=== PATIENT | female | born 1955 | race African-American/Black ===

== ENCOUNTER → 2016-07-02 | Outpatient (CLI) | payer MEDICARE, BC | LOC: RAD 09:00 | PROVIDERS: ATTEND Surgery | DX: R13.10 Dysphagia, unspecified (principal) | CPT/HCPCS: 74210 ==

== ENCOUNTER → 2016-08-20 | Outpatient (CLI) | payer MEDICARE, BC | LOC: WI 09:15 | PROVIDERS: ATTEND Internal Medicine | DX: N63 Unspecified lump in breast (principal); N64.9 Disorder of breast, unspecified | CPT/HCPCS: 76642; G0204; 77066 ==

== ENCOUNTER → 2016-09-18 | Day surgery (SDC) | payer MEDICARE, BC ==
[~2016-09-18] MED LIST: LIDOCAINE 2% INJ (20 MG/ML) 20 ML MDV ONE
== END ==
LOC: WI 09:58
PROVIDERS: ATTEND Internal Medicine
PROC: 0HBU3ZX Excision of Left Breast, Percutaneous Approach, Diagnostic (ICD-10-PCS; principal; 2016-09-18)
DX: C50.912 Malignant neoplasm of unspecified site of left female breast (principal)
CPT/HCPCS: 88342 ×2; 88341 ×2; 88305 ×2; 19083; J3490

== ENCOUNTER → 2016-09-23 | Outpatient (CLI) | payer MEDICARE, BC | LOC: RAD 11:05 | PROVIDERS: ATTEND Internal Medicine | DX: N23 Unspecified renal colic (principal) | CPT/HCPCS: 76380 ==

== ENCOUNTER → 2016-09-29 | Outpatient (CLI) | payer MEDICARE, BC | LOC: RAD 08:57 | PROVIDERS: ATTEND Internal Medicine Medical Oncology | DX: N64.4 Mastodynia (principal) | CPT/HCPCS: A9576; C8906; 77059 ==

== ENCOUNTER → 2016-10-31 | Outpatient (CLI) | payer MEDICARE, BC | LOC: RAD 17:58 | PROVIDERS: ATTEND Internal Medicine Medical Oncology | DX: C50.412 Malignant neoplasm of upper-outer quadrant of left female breast (principal); N64.4 Mastodynia | CPT/HCPCS: 78815; A9552 ==

== ENCOUNTER → 2016-11-05 | Outpatient (CLI) | payer MEDICARE, BC | LOC: RAD 10:55 | PROVIDERS: ATTEND Internal Medicine Medical Oncology | DX: I42.7 Cardiomyopathy due to drug and external agent (principal); T45.1X5A Adverse effect of antineoplastic and immunosuppressive drugs, initial encounter; Y92.9 Unspecified place or not applicable | CPT/HCPCS: 78472; A9560; Q9969 ==

== ENCOUNTER 2016-11-27 21:50 | Emergency (ER) | payer MEDICARE, BC ==
--- NOTE | 2016-11-27 23:19 | RADIOLOGY REPORT (SQ) ---
EXAM DESCRIPTION: CHEST SINGLE VIEW COMPLETED DATE/TIME: 11/27/2016 11:10 pm REASON FOR STUDY: sob' COMPARISON: 03/12/2013. EXAM PARAMETERS: NUMBER OF VIEWS: One view. TECHNIQUE: Single frontal radiographic view of the chest acquired. RADIATION DOSE: NA LIMITATIONS: None. FINDINGS: LUNGS AND PLEURA: No opacities, masses or pneumothorax. No pleural effusion. MEDIASTINUM AND HILAR STRUCTURES: No masses. Contour normal. HEART AND VASCULAR STRUCTURES: Heart normal in size. Normal vasculature. BONES: No acute findings. Degenerative changes in the spine. HARDWARE: PICC line. OTHER: No other significant finding. IMPRESSION: NO ACUTE RADIOGRAPHIC FINDING IN THE CHEST. TECHNICAL DOCUMENTATION: JOB ID: [id number]
[2016-11-27] MEDS ORDERED: NORMAL SALINE 1000 ML 1,000 ML IV ONE (23:28)
--- NOTE | 2016-11-27 23:31 | ER Document Report ---
ED General - General Chief Complaint: Shortness Of Breath Stated Complaint: WEAKNESS Time Seen by Provider: 11/27/16 22:26 Notes: Patient is a 60 year old female with a past medical history of stage I breast cancer of the left breast on active chemotherapy and radiation at this time who presents with chest pain with a associated shortness of breath both of which have now resolved. Patient states that she had a fall yesterday in which she fell and hit her left chest. States that since that time she has had some dull , aching, constant pain to the affected left chest. States that today when she was in the kitchen she suddenly had progressive worsening of that pain. Describes it as a dull, aching, stabbing pain. Nothing was noted to trigger the pain has not completely resolved on its own. She does have a history of a pulmonary embolus in the past and is currently anticoagulated on rivaroxaban. Denies any missed medications. States that the pain does not feel at all similar to when she had a pulmonary embolus in the past. Denies any cardiac history. She has not seen her primary care doctor regarding today's concerns. TRAVEL OUTSIDE OF THE [place] IN LAST 30 DAYS: No - Related Data Allergies/Adverse Reactions: iodine [Iodine] Allergy (Severe, Verified 11/28/15 07:08) swelling, itch, resp distress Past Medical History - General Information source: Patient - Social History Smoking Status: Never Smoker Frequency of alcohol use: None Drug Abuse: None Lives with: Family Family History: Arthritis, CAD, DM, Hyperlipidemia, Hypertension, Malignancy Patient has suicidal ideation: No Patient has homicidal ideation: No - Past Medical History Cardiac Medical History: Reports: Hx Congestive Heart Failure - 2006, Hx Coronary Artery Disease, Hx DVT, Hx Hypercholesterolemia, Hx Hypertension, Hx Peripheral Vascular Disease, Hx Pulmonary Embolism - 1996 or 997 Denies: Hx Atrial Fibrillation, Hx Heart Attack, Hx Heart Murmur Pulmonary Medical History: Reports: Hx Asthma Denies: Hx Bronchitis, Hx COPD, Hx Pneumonia, Hx Respiratory Failure, Hx Sleep Apnea, Hx Tuberculosis Neurological Medical History: Denies: Hx Cerebrovascular Accident, Hx Seizures Endocrine Medical History: Reports: Hx Diabetes Mellitus Type 1, Hx Diabetes Mellitus Type 2, Hx Hypothyroidism. Denies: Hx Graves' Disease, Hx Hyperthyroidism Renal/ Medical History: Reports: Hx Kidney Stones - 2 wks ago, Hx Renal Insufficiency. Denies: Hx Peritoneal Dialysis Malignancy Medical History: Denies: Hx Lung Cancer GI Medical History: Reports: Hx Gastroesophageal Reflux Disease Musculoskeltal Medical History: Reports Hx Arthritis - Back, Reports Hx Musculoskeletal Trauma Psychiatric Medical History: Denies: Hx Depression Traumatic Medical History: Reports: Hx Fractures - hx L ankle Past Surgical History: Reports: Hx Abdominal Surgery - lap band, Hx Cholecystectomy, Hx Orthopedic Surgery - back surgery, Hx Thyroid Surgery, Hx Vascular Surgery - miranda filter. Denies: Hx Hysterectomy, Hx Pacemaker - Immunizations Immunizations up to date: Yes Hx Diphtheria, Pertussis, Tetanus Vaccination: Yes Hx Pneumococcal Vaccination: 06/22/00 Review of Systems - Review of Systems Notes: Constitutional: Negative for fever. HENT: Negative for sore throat. Eyes: Negative for visual changes. Cardiovascular: Positive for chest pain. Respiratory: Negative for shortness of breath. Gastrointestinal: Negative for abdominal pain, vomiting or diarrhea. Genitourinary: Negative for dysuria. Musculoskeletal: Negative for back pain. Skin: Negative for rash. Neurological: Negative for headaches, weakness or numbness. 10 point ROS negative except as marked above and in HPI. Physical Exam - Vital signs Vitals: Temp Pulse Resp BP 97.4 F 103 H 26 H 118/53 L 11/27/16 22:25 11/27/16 22:25 11/27/16 22:25 11/27/16 22:25 Initial respiratory rate is recorded is inaccurate. I saw the patient shortly after arrival and she had a normal respiratory rate of 14 breaths per minute. Interpretation: Tachycardic Notes: PHYSICAL EXAMINATION: GENERAL: Well-appearing, well-nourished and in no acute distress. HEAD: Atraumatic, normocephalic. EYES: Pupils equal round and reactive to light, extraocular movements intact, sclera anicteric, conjunctiva are normal. ENT: nares patent, oropharynx clear without exudates. Moist mucous membranes. NECK: Normal range of motion, supple without lymphadenopathy LUNGS: Breath sounds clear to auscultation bilaterally and equal. No wheezes rales or rhonchi. HEART: Regular rate and rhythm without murmurs ABDOMEN: Soft, nontender, normoactive bowel sounds. No guarding, no rebound. No masses appreciated. EXTREMITIES: Normal range of motion, no pitting or edema. No cyanosis. NEUROLOGICAL: No focal neurological deficits. Moves all extremities spontaneously and on command. PSYCH: Normal mood, normal affect. SKIN: Warm, Dry, normal turgor, no rashes or lesions noted. Course - Re-evaluation Re-evalutation: 11/27/16 23:28 Patient presents with complaints of chest pain that has now resolved spontaneously with some associated mild shortness of breath. She clarifies that her shortness of breath is actually more of generalized weakness and fatigue which she states she has had continuously since starting chemotherapy for localized breast cancer to the left breast. Patient does have a history of a pulmonary embolism in the past and is currently anticoagulated on rivaroxaban and is clear that she has been taking it exactly as directed and has not missed any doses. She also states "it cannot be that, it feels nothing like when I had that in the past". She denies any dyspnea at the time of my assessment and again states her chest pain is now gone. No cardiac history. She relays a large degree of soreness over her left chest and lower ribs after an episode in which she fell yesterday. Patient does have reproducible pain on palpation of the affected areas. Chest x-ray without evidence of pneumothorax, free air, or widened mediastinum. EKG without ST elevations or depressions. Of note, patient's initial laboratories do show a leukocytosis with an associated bandemia. Suspect this is related to her recent chemotherapy as she has no infectious symptoms whatsoever, no evidence of a urinary tract infection or pneumonia. She has no skin exam findings. Again she denies any symptoms to suggest an acute infectious pathology today. HEART Score: History:0 EC Age:1 Risk Factors:1 Troponin:0 Total: 2 11/28/16 02:48 Patient has remained without pain or shortness of breath. Second troponin remains negative. Final overall assessment: Chest pain in a patient without evidence of cardiac or other serious etiology on workup today. I discussed with patient that, based on their age, risk factors and emergency department testing today, the likelihood that their symptoms are related to a heart attack is very low (estimated risk of heart attack or over the next 30 days of less than 1%). The patient demonstrates decision making capacity and has verbalized an understanding of these risks to me. Based on this, the patient has chosen to follow-up as an outpatient. Usual chest pain return precautions reviewed. The patient states understanding and agreement with this plan. 11/28/16 02:51 - Vital Signs Vital signs: Temp Pulse Resp BP Pulse Ox 97.7 F 97 17 113/58 L 100 11/27/16 23:14 11/27/16 23:14 11/28/16 01:00 11/28/16 00:01 11/28/16 01:00 - Laboratory Result Diagrams: 11/27/16 23:20 11/27/16 23:20 Laboratory results interpreted by me: 11/27/16 11/27/16 11/28/16 00:40 23:20 01:51 WBC 18.5 H MCH 26.9 L RDW 16.7 H Band Neutrophils % 8 H Monocytes % (Manual) 0 L Metamyelocytes % 1 H Abs Neuts (Manual) 15.2 H Abs Monocytes (Manual) 0.0 L Sodium 136.9 L Potassium 3.3 L Carbon Dioxide 19 L Glucose 118 H Total Protein 5.7 L Albumin 3.1 L Urine Glucose (UA) >=1000 H Urine Ketones 100 H - Diagnostic Test Radiology reviewed: Image reviewed, Reports reviewed Radiology results interpreted by me: 11/28/16 02:49 Chest x-ray: No acute infiltrate or pneumothorax - EKG Interpretation by Me Additional EKG results interpreted by me: 11/28/16 02:49 Sinus tachycardia. Rate 107. No ST elevations or depressions. TC is 465. Discharge - Discharge Clinical Impression: Chest pain Qualifiers: Chest pain type: unspecified Qualified Code(s): R07.9 - Chest pain, unspecified Condition: Good Disposition: HOME, SELF-CARE Additional Instructions: You were seen today for chest pain. The exact cause of your pain is unclear. However, based on your cardiac enzyme testing, chest x-ray, and EKG it does not appear that it is from an immediately life-threatening cause at this time. Although your testing here is normal is critical that you follow-up with your primary care physician for continued evaluation of this chest pain and possible stress testing. I recommended you see your physician within the next 24-48 hours to be evaluated for consideration of a stress test. Please return to emergency department immediately if you have worsening of your chest pain, shortness of breath, vomiting, become unable to exert yourself due to pain or difficulty breathing, you pass out, or have any pain that radiates into your arms, jaw, or back. Please also return if you have any additional symptoms that are concerning to you. Referrals: DEBRA CAMPBELL MD [Primary Care Provider] - Follow up in 3-5 days
[2016-11-27 23:41] LABS: HEMOGLOBIN 13.1 g/dL (12.0-15.5); HGB HCT DIFFERENCE -1.7; MEAN CORPUSCULAR HEMOGLOBIN 26.9 pg (27.0-33.4); MEAN CORPUSCULAR VOLUME 84 fl (80-97); RED BLOOD COUNT 4.88 10^6/uL (3.72-5.28); RED CELL DISTRIBUTION WIDTH 16.7 % (11.5-14.0); WHITE BLOOD COUNT 18.5 10^3/uL (4.0-10.5)
[2016-11-27] MEDS ORDERED: IPRATROPIUM/ALBUTEROL 0.5-2.5 MG/3 ML AMPUL NEB ONE (23:43)
[2016-11-28 00:12] LABS: BAND NEUTROPHILS % (MANUAL) 8 % (3-5); BASOPHILS % (MANUAL) 0 % (0-2); EOSINOPHILS % (MANUAL) 0 % (0-6); LYMPHOCYTES % (MANUAL) 18 % (13-45); TOTAL CELLS COUNTED 100
[2016-11-28 00:14] LABS: ANISOCYTOSIS 1+; POLYCHROMASIA 1+; TOXIC GRANULATION 1+; TOXIC VACUOLATION PRESENT
[2016-11-28 01:47] LABS: ALANINE AMINOTRANSFERASE 36 U/L (9-52); ALBUMIN 3.1 g/dL (3.5-5.0); ALKALINE PHOSPHATASE 94 U/L (38-126); ANION GAP 11 (5-19); ASPARTATE AMINO TRANSFERASE 17 U/L (14-36); BILIRUBIN,DIRECT 0.3 mg/dL (0.0-0.4); BILIRUBIN,TOTAL 0.3 mg/dL (0.2-1.3); BLOOD UREA NITROGEN 10 mg/dL (7-20); CALCIUM 8.7 mg/dL (8.4-10.2); CARBON DIOXIDE 19 mmol/L (22-30); CHLORIDE 107 mmol/L (98-107); CREATININE RESULT 0.83 mg/dL (0.52-1.25); GLUCOSE 118 mg/dL (75-110); POTASSIUM 3.3 mmol/L (3.6-5.0); SODIUM 136.9 mmol/L (137-145); TOTAL PROTEIN 5.7 g/dL (6.3-8.2)
[2016-11-28 02:23] LABS: APPEARANCE,URINE SLIGHTLY-CLOUDY; BILIRUBIN,URINE NEGATIVE (NEGATIVE); GLUCOSE, URINE >=1000 mg/dL (NEGATIVE); KETONES,URINE 100 mg/dL (NEGATIVE)
[2016-11-28 02:24] LABS: LEUKOCYTE ESTERASE,URINE NEGATIVE (NEGATIVE); NITRITE,URINE NEGATIVE (NEGATIVE); PROTEIN,URINE NEGATIVE (NEGATIVE); URINE SPECIFIC GRAVITY 1.028; UROBILINOGEN,URINE NEGATIVE mg/dL (<2.0)
[2016-11-28 02:25] LABS: BACTERIA,URINE TRACE /HPF
[2016-11-28 03:10] VITALS: BP 130/66
--- NOTE | 2016-11-28 11:03 | EKG REPORT ---
SEVERITY:- ABNORMAL ECG - SINUS TACHYCARDIA PROBABLE LEFT ATRIAL ABNORMALITY LVH WITH SECONDARY REPOLARIZATION ABNORMALITY : Confirmed by: Gunjan Hopper MD 28-Nov-2016 11:02:35
== END 2016-11-28 03:10 | disposition home or self-care (01) ==
LOC: ER 21:50
DX: R07.9 Chest pain, unspecified (principal); R06.02 Shortness of breath; C50.912 Malignant neoplasm of unspecified site of left female breast; W19.XXXA Unspecified fall, initial encounter; R53.83 Other fatigue; R53.1 Weakness; I50.9 Heart failure, unspecified; E78.00 Pure hypercholesterolemia, unspecified; I11.0 Hypertensive heart disease with heart failure; E11.9 Type 2 diabetes mellitus without complications; E03.9 Hypothyroidism, unspecified; Z79.02 Long term (current) use of antithrombotics/antiplatelets; Z86.711 Personal history of pulmonary embolism; Z86.718 Personal history of other venous thrombosis and embolism; Z87.442 Personal history of urinary calculi; Z90.49 Acquired absence of other specified parts of digestive tract
CPT/HCPCS: 93005; 94640; 99285; 96360; 36415; 85025; 80053; 81001; 84484; 71010; 93010; J7030; A9270; J7620

== ENCOUNTER 2016-12-16 13:40 | Observation (INO) | payer MEDICARE, BC ==
[2016-12-16 15:04] LABS: HEMATOCRIT 40.2 % (36.0-47.0); HEMOGLOBIN 13.3 g/dL (12.0-15.5); HGB HCT DIFFERENCE -0.3; MEAN CORPUSCULAR HEMOGLOBIN 27.7 pg (27.0-33.4); MEAN CORPUSCULAR HGB CONC 33.2 g/dL (32.0-36.0); MEAN CORPUSCULAR VOLUME 83 fl (80-97); RED BLOOD COUNT 4.82 10^6/uL (3.72-5.28); WHITE BLOOD COUNT 10.5 10^3/uL (4.0-10.5)
[2016-12-16 15:26] LABS: ALANINE AMINOTRANSFERASE 37 U/L (9-52); ALBUMIN 3.5 g/dL (3.5-5.0); ALKALINE PHOSPHATASE 98 U/L (38-126); ANION GAP 13 (5-19); ASPARTATE AMINO TRANSFERASE 17 U/L (14-36); BILIRUBIN,DIRECT 0.2 mg/dL (0.0-0.4); BILIRUBIN,TOTAL 0.5 mg/dL (0.2-1.3); BLOOD UREA NITROGEN 11 mg/dL (7-20); CALCIUM 9.2 mg/dL (8.4-10.2); CARBON DIOXIDE 24 mmol/L (22-30); CHLORIDE 97 mmol/L (98-107); CREATININE RESULT 0.87 mg/dL (0.52-1.25); GLUCOSE 151 mg/dL (75-110); POTASSIUM 3.7 mmol/L (3.6-5.0); SODIUM 133.7 mmol/L (137-145); TOTAL PROTEIN 6.4 g/dL (6.3-8.2)
[2016-12-16] MEDS ORDERED: NORMAL SALINE 1000 ML 1,000 ML IV PRN (15:41)
[2016-12-16] MEDS ORDERED: PROCHLORPERAZINE MALEATE 10 MG TABLET PO PRN (17:54)
[2016-12-16] MEDS ORDERED: (PENDING PHARMACY ID) (Oxycodone Hcl/Acetaminophen [Percocet 10-325 Mg Tablet] 1 TAB) PO PRN (17:54)
[2016-12-16] MEDS ORDERED: ALBUTEROL SULFATE HFA (90 MCG/PUFF) 8 GM MDI (1 MDI/ER DISP) IH PRN (17:54)
[2016-12-16] MEDS ORDERED: (PENDING PHARMACY ID) (Valsartan/Hydrochlorothiazide [Diovan Hct 320-25 Mg Tablet] 1 TAB) PO SCH (18:00)
--- NOTE | 2016-12-16 18:10 | PDOC H&P ---
History of Present Illness Admission Date/PCP: 12/16/16 13:40 DEBRA CAMPBELL MD History of Present Illness: BELEM WILLOUGHBY is a 61 year old female she has a history of breast cancer on active chemotherapy, she came to the office today for evaluation of extreme fatigue and low blood pressure, she stated that she was at the oncologist's office earlier today and the blood pressure recorded was 80 systolic. she was Evaluated in the office the blood pressure recorded in the office was 160 systolic because of the discrepancy between the recorded blood pressure in the office and the blood pressure recorded at the office of the oncologist, orthostasis was suspected, she was admitted directly from the office for evaluation and management of her condition. Past Medical History Cardiac Medical History: Reports: Atrial Fibrillation, Hyperlipidema, Hypertension Pulmonary Medical History: Reports: Asthma Neurological Medical History: Denies: Seizures Endocrine Medical History: Reports: Diabetes Mellitus Type 2, Hypothyroidism, Obesity Malignancy Medical History: Reports: Breast Cancer GI Medical History: Reports: Gastroesophageal Reflux Disease Musculoskeltal Medical History: Reports: Arthritis - Back Past Surgical History Past Surgical History: Reports: Cholecystectomy, Orthopedic Surgery - back surgery, Vascular Surgery - miranda filter Social History Smoking Status: Never Smoker Frequency of Alcohol Use: None Hx Recreational Drug Use: No Hx Prescription Drug Abuse: No Family History Family History: Arthritis, CAD, DM, Hyperlipidemia, Hypertension, Malignancy Parental Family History Reviewed: Yes Children Family History Reviewed: Yes Sibling(s) Family History Reviewed.: Yes Medication/Allergy Home Medications: Albuterol Sulfate [Proair HFA] 2 puff IH Q4HP PRN 12/16/16 Atorvastatin Calcium [Lipitor 40 mg Tablet] 40 mg PO QHS 12/16/16 Budesonide/Formoterol Fumarate [Symbicort HFA 160-4.5 mcg Inhaler 6 gm] 2 puff IH Q12 12/16/16 Cyclobenzaprine HCl [Flexeril 10 mg Tablet] 10 mg PO Q8 12/16/16 Exenatide Microspheres [Bydureon Pen] 12/16/16 Glimepiride [Amaryl 4 mg Tablet] 4 mg PO DAILY 12/16/16 Levothyroxine Sodium [Synthroid 0.1 mg Tablet] 100 mcg PO DAILY 12/16/16 Lorazepam [Ativan 0.5 mg Tablet] 12/16/16 Metformin HCl [Glucophage] 12/16/16 Nystatin/Dexameth/Diphen [Magic Mouthwash] 12/16/16 Ondansetron HCl [Zofran 8 mg Tablet] 12/16/16 Oxycodone HCl/Acetaminophen [Percocet 10-325 mg Tablet] 1 tab PO Q6HP PRN Pegfilgrastim [Neulasta] 12/16/16 Prednisolone Acetate [Pred Forte] 1 drop OU Q12 12/16/16 Prochlorperazine Maleate [Compazine 10 mg Tablet] 10 mg PO Q6HP PRN 12/16/16 Rivaroxaban [Xarelto] 20 mg PO DAILY 12/16/16 Valsartan/Hydrochlorothiazide [Diovan Hct 320-25 mg Tablet] 1 tab PO DAILY 12/16 Allergies/Adverse Reactions: iodine [Iodine] Allergy (Severe, Verified 11/28/15 07:08) swelling, itch, resp distress Review of Systems Constitutional: PRESENT: fatigue Eyes: ABSENT: visual disturbances Ears: ABSENT: hearing changes Cardiovascular: ABSENT: chest pain, dyspnea on exertion, edema, orthropnea, palpitations Respiratory: ABSENT: cough, hemoptysis Gastrointestinal: ABSENT: abdominal pain, constipation, diarrhea, hematemesis, hematochezia, nausea, vomiting Genitourinary: ABSENT: dysuria, hematuria Musculoskeletal: ABSENT: joint swelling Integumentary: ABSENT: rash, wounds Neurological: ABSENT: abnormal gait, abnormal speech, confusion, dizziness, focal weakness, syncope Psychiatric: ABSENT: anxiety, depression, homidical ideation, suicidal ideation Endocrine: ABSENT: cold intolerance, heat intolerance, menstrual abnormalities, polydipsia, polyuria Hematologic/Lymphatic: ABSENT: easy bleeding, easy bruising, lymphadenopathy Physical Exam Vital Signs: Temp Pulse Resp BP Pulse Ox 98.0 F 109 H 20 145/74 H 100 12/16/16 14:19 12/16/16 15:50 12/16/16 14:19 12/16/16 14:19 12/16/16 14:19 Intake & Output 12/15/16 12/16/16 12/17/16 06:59 06:59 06:59 Weight 135.5 kg General appearance: PRESENT: mild distress Head exam: PRESENT: atraumatic, normocephalic Eye exam: PRESENT: conjunctiva pink, EOMI, PERRLA Mouth exam: PRESENT: moist Neck exam: PRESENT: full ROM Respiratory exam: PRESENT: clear to auscultation maria del rosario Cardiovascular exam: PRESENT: RRR, +S1, +S2 Vascular exam: PRESENT: normal capillary refill GI/Abdominal exam: PRESENT: normal bowel sounds, soft Rectal exam: PRESENT: deferred Neurological exam: PRESENT: alert, awake, oriented to person, oriented to place , oriented to time, oriented to situation, CN II-XII grossly intact Psychiatric exam: PRESENT: appropriate affect, normal mood Skin exam: PRESENT: dry, intact, warm Results Laboratory Results: 12/16/16 14:55 12/16/16 14:55 12/16/16 12/16/16 14:55 14:55 WBC 10.5 RBC 4.82 Hgb 13.3 Hct 40.2 MCV 83 MCH 27.7 MCHC 33.2 RDW 18.0 H Plt Count 313 Sodium 133.7 L Potassium 3.7 Chloride 97 L Carbon Dioxide 24 Anion Gap 13 BUN 11 Creatinine 0.87 Est GFR ( Amer) > 60 Est GFR (Non-Af Amer) > 60 Glucose 151 H Calcium 9.2 Total Bilirubin 0.5 AST 17 ALT 37 Alkaline Phosphatase 98 Total Protein 6.4 Albumin 3.5 Assessment & Plan - Diagnosis (1) Malignant neoplasm of breast Qualifiers: Breast location: unspecified site of breast Estrogen receptor status: unspecified Patient sex: female Laterality: unspecified laterality Qualified Code(s): C50.919 - Malignant neoplasm of unspecified site of unspecified female breast Is this a current diagnosis for this admission?: Yes (2) Orthostasis Is this a current diagnosis for this admission?: YesPlan: Condition is probably related to the chemotherapy that she received, she was admitted for observation and for IV fluid therapy she will be discharged home in 24 hours
[2016-12-16] MEDS ORDERED: LORAZEPAM 0.5 MG TABLET PO PRN (18:15)
[2016-12-16] MEDS ORDERED: ONDANSETRON HCL 8 MG TABLET PO PRN (18:15)
[2016-12-16] MEDS ORDERED: OXYCODONE-ACETAMINOPHEN 5-325 MG TABLET PO PRN (18:34)
[2016-12-16] MEDS ORDERED: OXYCODONE HCL IR 5 MG TABLET PO PRN (18:35)
[2016-12-16] MEDS ORDERED: NYSTATIN/DEXAMETH/DIPHEN SUSP 120 ML PO PRN (18:36)
[2016-12-16] MEDS ORDERED: ALBUTEROL SULFATE HFA (90 MCG/PUFF) 200 PUFF/8.5 GM MDI IH PRN (18:37)
[2016-12-16 18:41] LABS: HEMATOCRIT 37.7 % (36.0-47.0); HEMOGLOBIN 12.1 g/dL (12.0-15.5); HGB HCT DIFFERENCE -1.4; MEAN CORPUSCULAR HEMOGLOBIN 27.1 pg (27.0-33.4); MEAN CORPUSCULAR VOLUME 85 fl (80-97); RED BLOOD COUNT 4.45 10^6/uL (3.72-5.28); RED CELL DISTRIBUTION WIDTH 17.5 % (11.5-14.0); WHITE BLOOD COUNT 10.2 10^3/uL (4.0-10.5)
[2016-12-16 18:47] LABS: PROTHROMBIN TIME 13.3 SEC (11.4-15.4)
[2016-12-16 18:48] LABS: PARTIAL THROMBOPLASTIN TIME 23.5 SEC (23.5-35.8)
[2016-12-16 19:01] LABS: CREATININE RESULT 0.81 mg/dL (0.52-1.25)
[2016-12-16] MEDS: PREDNISOLONE ACETATE 1% OPH SUSP 5 ML OU SCH (21:55)
[2016-12-16] MEDS: BUDESONIDE/FORMOTEROL 160-4.5 MCG 60 PUFF/6 GM MDI IH SCH (21:56)
[2016-12-16] MEDS: CYCLOBENZAPRINE HCL 10 MG TABLET PO SCH (21:57)
[2016-12-16] MEDS ORDERED: ATORVASTATIN CALCIUM 40 MG TABLET PO SCH (22:00)
[2016-12-17] MEDS: CYCLOBENZAPRINE HCL 10 MG TABLET PO SCH ×2 (06:35→13:33)
[2016-12-17 07:03] LABS: APPEARANCE,URINE CLEAR; BILIRUBIN,URINE NEGATIVE (NEGATIVE); GLUCOSE, URINE >=500 mg/dL (NEGATIVE); KETONES,URINE NEGATIVE (NEGATIVE); LEUKOCYTE ESTERASE,URINE NEGATIVE (NEGATIVE); NITRITE,URINE NEGATIVE (NEGATIVE); PROTEIN,URINE NEGATIVE (NEGATIVE); URINE SPECIFIC GRAVITY 1.001; UROBILINOGEN,URINE NEGATIVE mg/dL (<2.0)
[2016-12-17] MEDS ORDERED: METFORMIN HCL 500 MG TABLET PO SCH (08:00)
[2016-12-17] MEDS ORDERED: VALSARTAN 160 MG TABLET PO SCH (10:00)
[2016-12-17] MEDS ORDERED: LEVOTHYROXINE SODIUM 0.1 MG TABLET PO SCH (10:00)
[2016-12-17] MEDS ORDERED: RIVAROXABAN 10 MG TABLET PO SCH (10:00)
[2016-12-17] MEDS ORDERED: HYDROCHLOROTHIAZIDE 25 MG TABLET PO SCH (10:00)
[2016-12-17] MEDS: BUDESONIDE/FORMOTEROL 160-4.5 MCG 60 PUFF/6 GM MDI IH SCH (10:20)
[2016-12-17] MEDS: PREDNISOLONE ACETATE 1% OPH SUSP 5 ML OU SCH (10:22)
[2016-12-17 13:38] VITALS: BP 145/74
--- NOTE | 2016-12-17 14:29 | PDOC DISCHARGE SUMMARY ---
General - Admit/Disc Date/PCP Admission Date/Primary Care Provider: 12/16/16 13:40 DEBRA CAMPBELL MD Discharge Date: 12/17/16 - Discharge Diagnosis (1) Malignant neoplasm of breast Is this a current diagnosis for this admission?: Yes (2) Orthostasis Is this a current diagnosis for this admission?: Yes - Additional Information Discharge Diet: Diabetic Discharge Activity: Activity As Tolerated Home Medications: Albuterol Sulfate [Proair HFA] 2 puff IH Q4HP PRN 12/16/16 Albuterol Sulfate [Ventolin 0.083% Neb 2.5 mg/3 mL Ampul] 2.5 mg NEB RTQ6HP PRN 12/16/16 Atorvastatin Calcium [Lipitor 40 mg Tablet] 40 mg PO QHS 12/16/16 Budesonide/Formoterol Fumarate [Symbicort HFA 160-4.5 mcg Inhaler 6 gm] 2 puff IH Q12 12/16/16 Cyclobenzaprine HCl [Flexeril 10 mg Tablet] 10 mg PO Q8 12/16/16 Exenatide Microspheres [Bydureon Pen] 2 mg SQ MO@1000 12/16/16 Glimepiride [Amaryl 4 mg Tablet] 4 mg PO DAILY 12/16/16 Levothyroxine Sodium [Synthroid 0.1 mg Tablet] 100 mcg PO DAILY 12/16/16 Lorazepam [Ativan 0.5 mg Tablet] 0.5 mg PO DAILYP PRN 12/16/16 Metformin HCl [Glucophage] 1,000 mg PO [id number] 12/16/16 Nystatin/Dexameth/Diphen [Magic Mouthwash] 5 ml PO DAILYP PRN 12/16/16 Nystatin/Triamcin [Mycolog-II Cream 15 gm] 1 applic TOP Q12 PRN 12/16/16 Ondansetron HCl [Zofran 8 mg Tablet] 8 mg PO DAILYP PRN 12/16/16 Oxycodone HCl/Acetaminophen [Percocet 10-325 mg Tablet] 1 tab PO Q6HP PRN Pegfilgrastim [Neulasta] 6 mg SQ [id number] 12/16/16 Prednisolone Acetate [Pred Forte] 1 drop OU Q12 12/16/16 Prochlorperazine Maleate [Compazine 10 mg Tablet] 10 mg PO Q6HP PRN 12/16/16 Rivaroxaban [Xarelto] 20 mg PO DAILY 12/16/16 Valsartan/Hydrochlorothiazide [Diovan Hct 320-25 mg Tablet] 1 tab PO DAILY 12/16 History of Present Illness History of Present Illness: BELEM WILLOUGHBY is a 61 year old female she has a history of breast cancer on active chemotherapy, she came to the office today for evaluation of extreme fatigue and low blood pressure, she stated that she was at the oncologist's office earlier today and the blood pressure recorded was 80 systolic. she was Evaluated in the office the blood pressure recorded in the office was 160 systolic because of the discrepancy between the recorded blood pressure in the office and the blood pressure recorded at the office of the oncologist, orthostasis was suspected, she was admitted directly from the office for evaluation and management of her condition. Hospital Course Hospital Course: She was admitted for observation, she was treated with IV fluid, for details check my H&P. Physical Exam Vital Signs: Temp Pulse Resp BP Pulse Ox 98.1 F 101 H 16 145/74 H 89 L 12/17/16 13:34 12/17/16 13:34 12/17/16 13:34 12/17/16 13:34 12/17/16 13:34 Intake & Output 12/16/16 12/17/16 12/18/16 06:59 06:59 06:59 Intake Total 2172 500 Output Total 1200 0 Balance 972 500 Weight 137.5 kg General appearance: PRESENT: no acute distress, well-developed, well-nourished Eye exam: PRESENT: conjunctiva pink, EOMI, PERRLA Mouth exam: PRESENT: moist Neck exam: PRESENT: full ROM Respiratory exam: PRESENT: clear to auscultation maria del rosario Cardiovascular exam: PRESENT: RRR, +S1, +S2 Vascular exam: PRESENT: normal capillary refill GI/Abdominal exam: PRESENT: normal bowel sounds, soft Rectal exam: PRESENT: deferred Neurological exam: PRESENT: alert Psychiatric exam: ABSENT: homicidal ideation, suicidal ideation Skin exam: PRESENT: dry, intact, warm. ABSENT: cyanosis, rash Results Laboratory Results: 12/16/16 18:15 12/16/16 18:15 12/16/16 12/16/16 12/16/16 14:55 14:55 18:15 WBC 10.5 10.2 RBC 4.82 4.45 Hgb 13.3 12.1 Hct 40.2 37.7 MCV 83 85 MCH 27.7 27.1 MCHC 33.2 32.0 RDW 18.0 H 17.5 H Plt Count 313 272 Sodium 133.7 L Potassium 3.7 Chloride 97 L Carbon Dioxide 24 Anion Gap 13 BUN 11 Creatinine 0.87 Est GFR ( Amer) > 60 Est GFR (Non-Af Amer) > 60 Glucose 151 H Calcium 9.2 Total Bilirubin 0.5 AST 17 ALT 37 Alkaline Phosphatase 98 Total Protein 6.4 Albumin 3.5 Urine Color Urine Appearance Urine pH Ur Specific [place] Urine Protein Urine Glucose (UA) Urine Ketones Urine Blood Urine Nitrite Ur Leukocyte Esterase Urine WBC (Auto) Urine RBC (Auto) 12/16/16 12/17/16 18:15 06:30 WBC RBC Hgb Hct MCV MCH MCHC RDW Plt Count Sodium Potassium Chloride Carbon Dioxide Anion Gap BUN Creatinine 0.81 Est GFR ( Amer) > 60 Est GFR (Non-Af Amer) > 60 Glucose Calcium Total Bilirubin AST ALT Alkaline Phosphatase Total Protein Albumin Urine Color STRAW Urine Appearance CLEAR Urine pH 6.0 Ur Specific [place] 1.001 Urine Protein NEGATIVE Urine Glucose (UA) >=500 H Urine Ketones NEGATIVE Urine Blood NEGATIVE Urine Nitrite NEGATIVE Ur Leukocyte Esterase NEGATIVE Urine WBC (Auto) 1 Urine RBC (Auto) 0
[2016-12-22] MEDS ORDERED: (PENDING PHARMACY ID) (Exenatide Microspheres [Bydureon Pen] 2 MG) SQ SCH (10:00)
== END 2016-12-17 14:21 | disposition home or self-care (01) ==
LOC: INTOOBSV 13:40 → 3S 13:40
PROVIDERS: ADMIT Internal Medicine; ATTEND Internal Medicine
DX: C50.912 Malignant neoplasm of unspecified site of left female breast (principal); I95.1 Orthostatic hypotension; E11.9 Type 2 diabetes mellitus without complications; J45.909 Unspecified asthma, uncomplicated; I10 Essential (primary) hypertension; E03.9 Hypothyroidism, unspecified; I48.91 Unspecified atrial fibrillation; E78.5 Hyperlipidemia, unspecified; Z79.899 Other long term (current) drug therapy; Z79.51 Long term (current) use of inhaled steroids; Z79.84 Long term (current) use of oral hypoglycemic drugs; Z95.828 Presence of other vascular implants and grafts; Z90.49 Acquired absence of other specified parts of digestive tract; Z82.49 Family history of ischemic heart disease and other diseases of the circulatory system; Z80.9 Family history of malignant neoplasm, unspecified; Z79.02 Long term (current) use of antithrombotics/antiplatelets; Z86.718 Personal history of other venous thrombosis and embolism; Z98.84 Bariatric surgery status
CPT/HCPCS: 36415; 82962 ×2; 82565; 85027; 85610; 85730; 80076; 80048; 81001; G0378 ×2; A9270 ×6; J3490 ×3; J7030; 93971; G0379

== ENCOUNTER → 2016-12-16 | Outpatient (CLI) | payer MEDICARE, BC ==
--- NOTE | 2016-12-16 12:00 | RADIOLOGY REPORT (SQ) ---
EXAM DESCRIPTION: VENOUS UNILATERAL UPPER COMPLETED DATE/TIME: 12/16/2016 11:49 am REASON FOR STUDY: RUE SWELLING R60.9 EDEMA, UNSPECIFIED COMPARISON: PET-CT 10/31/2016 TECHNIQUE: Dynamic and static martell scale and color images acquired of the right arm venous system. S elected spectral images acquired with additional compression and augmentation maneuvers. The contrala teral subclavian vein and internal jugular vein were also imaged. Images stored on PACS. LIMITATIONS: None. FINDINGS: RIGHT INTERNAL JUGULAR VEIN: Normal phasicity, compression, augmentation. No visualized echogenic material on martell scale. No defects on color images. Comparison opposite side normal. SUBCLAVIAN VEIN: Normal compression, augmentation. No visualized echogenic material on martell scale. No defects on color images. AXILLARY VEIN: Normal compression, augmentation. No visualized echogenic material on martell scale. No d efects on color images. BRACHIAL VEIN: Normal compression, augmentation. No visualized echogenic material on martell scale. No d efects on color images. BASILIC VEIN: Normal compression, augmentation. No visualized echogenic material on martell scale. Tubi ng for IV port seen in the right basilic vein. CEPHALIC VEIN: Normal compression, augmentation. No visualized echogenic material on martell scale. No d efects on color images. OTHER: No other significant finding. LEFT INTERNAL JUGULAR VEIN: Normal phasicity, compression and augmentation. No visualized echogenic material on martell scale. No de fects on color images. IMPRESSION: NO EVIDENCE DVT OR SVT RIGHT ARM. TECHNICAL DOCUMENTATION: JOB ID: [id number] [employer]- All Rights Reserved
== END ==
LOC: SP 11:00
PROVIDERS: ATTEND Internal Medicine Medical Oncology
DX: M79.89 Other specified soft tissue disorders (principal); R60.9 Edema, unspecified
CPT/HCPCS: 93971

== ENCOUNTER → 2017-02-11 | Outpatient (CLI) | payer MEDICARE, BC ==
--- NOTE | 2017-02-11 15:57 | RADIOLOGY REPORT (SQ) ---
EXAM DESCRIPTION: NM MUGA REST COMPLETED DATE/TIME: 02/11/2017 1:45 pm REASON FOR STUDY: CARDIOMYOPATHY DUE TO DRUG AND EXTERNAL AGENT (I42.7) I42.7 CARDIOMYOPATHY DUE TO DRUG AND EXTERNAL AGENT COMPARISON: MUGA THIS SCAN 11/05/2016 RADIONUCLIDE AND DOSE: 24.2 mCi technetium 99 M pyrophosphate was tagged to the patient's own red ce lls. The route of agent administration: Intravenous TECHNIQUE: Following administration of the radionuclide, gated images of the heart are obtained in t hree projections. Left ventricular functional analysis performed. LIMITATIONS: None. FINDINGS: LEFT VENTRICULAR FUNCTION: EJECTION FRACTION: 74%. END-DIASTOLIC VOLUME: 74 mL. END-SYSTOLIC VOLUME: 30 mL. WALL MOTION: No focal wall motion abnormalities. OTHER: No other significant finding. IMPRESSION: NORMAL CARDIAC MUGA STUDY. NORMAL LEFT VENTRICULAR FUNCTION of 74% TECHNICAL DOCUMENTATION: JOB ID: [id number]- All Rights Reserved
== END ==
LOC: RAD 10:50
PROVIDERS: ATTEND Internal Medicine Medical Oncology
DX: T45.1X1A Poisoning by antineoplastic and immunosuppressive drugs, accidental (unintentional), initial encounter (principal); I42.7 Cardiomyopathy due to drug and external agent; Y92.9 Unspecified place or not applicable
CPT/HCPCS: 78472; A9560; Q9969

== ENCOUNTER 2017-04-06 13:55 | Emergency (ER) | payer MEDICARE, BC ==
--- NOTE | 2017-04-06 15:34 | ER Document Report ---
ED Respiratory Problem - General Mode of Arrival: Ambulatory Information source: Patient TRAVEL OUTSIDE OF THE [place] IN LAST 30 DAYS: No - HPI Patient complains to provider of: Short of breath Duration: Worse/persistent Similar symptoms previously: Yes <KATHRYN ALCALA - Last Filed: 04/06/17 22:21> <GRETA HUSAIN - Last Filed: 04/06/17 23:12> - General Chief Complaint: Breathing Difficulty Stated Complaint: SHORNTESS OF BREATH Time Seen by Provider: 04/06/17 14:54 Notes: Patient is a 61-year-old female who presents to the emergency department today with complaints of shortness of breath. Patient states it feels like " something is stopping her from being able to get a deep breath". Patient also states she gets a sensation intermittently that something is "pressing on her chest". Patient reports "nearly blacking out" in x-ray. Patient has a history of PE/DVT and has breast cancer. Patient is on Xarelto and has been for the last 1 or 2 years, patient has not missed any dosages of medication. (KATHRYN ALCALA) - Related Data Allergies/Adverse Reactions: iodine [Iodine] Allergy (Severe, Verified 04/06/17 14:22) swelling, itch, resp distress Home Medications: Current Home Medications Atorvastatin Calcium [Lipitor 40 mg Tablet] 40 mg PO QHS 04/06/17 [History] Exenatide Microspheres [Bydureon Pen] 2 mg SUBCUT MO@1000 04/06/17 [History] Glimepiride [Amaryl 4 mg Tablet] 4 mg PO DAILY 04/06/17 [History] Levothyroxine Sodium [Synthroid 0.1 mg Tablet] 0.1 mg PO DAILY 04/06/17 [History ] Metformin HCl [Glucophage] 1,000 mg PO [id number] 04/06/17 [History] Pregabalin [Lyrica 75 mg Capsule] 75 mg PO Q12 04/06/17 [History] Rivaroxaban [Xarelto] 20 mg PO DAILY 04/06/17 [History] Valsartan/Hydrochlorothiazide [Valsartan-Hctz 320-25 mg Tab] 1 tab PO DAILY [History] Past Medical History - General Information source: Patient, [facility] Records - Social History Smoking Status: Never Smoker Cigarette use (# per day): No Chew tobacco use (# tins/day): No Frequency of alcohol use: None Drug Abuse: None Lives with: Family Family History: Reviewed & Not Pertinent, Arthritis, CAD, DM, Hyperlipidemia, Hypertension, Malignancy Patient has suicidal ideation: No - Past Medical History Cardiac Medical History: Reports: Hx Atrial Fibrillation, Hx Congestive Heart Failure - 2006, Hx Coronary Artery Disease, Hx DVT, Hx Hypercholesterolemia, Hx Hypertension, Hx Peripheral Vascular Disease, Hx Pulmonary Embolism - 1996 or 997 Pulmonary Medical History: Reports: Hx Asthma Endocrine Medical History: Reports: Hx Diabetes Mellitus Type 1, Hx Diabetes Mellitus Type 2, Hx Hypothyroidism Renal/ Medical History: Reports: Hx Kidney Stones - 2 wks ago, Hx Renal Insufficiency Malignancy Medical History: Reports: Hx Breast Cancer GI Medical History: Reports: Hx Gastroesophageal Reflux Disease Musculoskeltal Medical History: Reports Hx Arthritis - Back, Reports Hx Musculoskeletal Trauma Traumatic Medical History: Reports: Hx Fractures - hx L ankle Past Surgical History: Reports: Hx Abdominal Surgery - lap band, Hx Cholecystectomy, Hx Orthopedic Surgery - back surgery, Hx Thyroid Surgery, Hx Vascular Surgery - miranda filter - Immunizations Immunizations up to date: Yes Hx Diphtheria, Pertussis, Tetanus Vaccination: Yes Hx Pneumococcal Vaccination: 06/22/00 <KATHRYN ALCALA - Last Filed: 04/06/17 22:21> Review of Systems - Review of Systems Constitutional: No symptoms reported EENT: No symptoms reported Cardiovascular: See HPI, Other - near syncope Respiratory: See HPI, Short of breath Gastrointestinal: No symptoms reported Genitourinary: No symptoms reported Female Genitourinary: No symptoms reported Musculoskeletal: No symptoms reported Skin: No symptoms reported Hematologic/Lymphatic: No symptoms reported Neurological/Psychological: No symptoms reported -: Yes All other systems reviewed and negative <KATHRYN ALCALA - Last Filed: 04/06/17 22:21> Physical Exam - Vital signs Interpretation: Hypotensive <KATHRYN ALCALA - Last Filed: 04/06/17 22:21> <GRETA HUSAIN - Last Filed: 04/06/17 23:12> - Vital signs Vitals: Pulse BP Pulse Ox 99 106/86 H 100 04/06/17 13:59 04/06/17 13:59 04/06/17 13:59 - Notes Notes: Physical Exam: General: Alert, appears uncomfortable. HEENT: Normocephalic. Atraumatic. PERRL. Extraocular movements intact. Oropharynx clear. Neck: Supple. Non-tender. Respiratory: No respiratory distress. Clear and equal breath sounds bilaterally. Cardiovascular: Tachycardic, regular rhythm. Abdominal: Obese. Non-tender. No distension. Normal Bowel Sounds. Back: Non-tender. No deformity or step off. Extremities: Moves all four extremities. Upper extremities: Port in RUE, clean dry and intact. Normal ROM. Lower extremities: Normal inspection. No edema. Normal ROM. Neurological: Normal cognition. AAOx4. Normal speech. Psychological: Tearful. Normal Mood. Skin: Warm. Dry. Normal color. (KATHRYN ALCALA) Course - Laboratory Result Diagrams: 04/06/17 16:50 04/06/17 16:50 <KATHRYN ALCALA - Last Filed: 04/06/17 22:21> - Laboratory Result Diagrams: 04/06/17 16:50 04/06/17 16:50 - Diagnostic Test Radiology reviewed: Reports reviewed <GRETA HUSAIN - Last Filed: 04/06/17 23:12> - Re-evaluation Re-evalutation: 04/06/17 20:[address] Amaya, agrees to admit patient. (KATHRYN ALCALA) 04/06/17 21:15 Patient is a 61-year-old female with a history of breast cancer and pulmonary embolus who presents with chest pain and difficulty breathing. Blood work within normal limits. Patient has an allergy to IV contrast dye that is anaphylactic. Patient had a nuclear medicine study with no evidence for pulmonary embolus. Patient has been taking Xarelto and has not missed any doses. Patient was given fluids. She is feeling better after that and a breathing treatment. Patient was discussed with her primary care doctor who agreed to admit the patient but the patient is adamant that she would like to go home. Patient ambulated in the department and had no drop in her oxygenation. Vitals are stable. Patient again would like to go home. Stable for discharge. Return immediately if any worsening or concerning symptoms. Blood cultures have been sent. (GRETA HUSAIN) - Vital Signs Vital signs: Temp Pulse Resp BP Pulse Ox 98.4 F 100 21 H 150/73 H 99 04/06/17 17:36 04/06/17 20:48 04/06/17 21:31 04/06/17 21:31 04/06/17 21:31 - Laboratory Laboratory results interpreted by me: 04/06/17 04/06/17 04/06/17 16:50 16:50 17:18 RBC 3.71 L Hgb 10.7 L Hct 31.5 L RDW 16.4 H VBG pH 7.47 H VBG pCO2 32.5 L Carbon Dioxide 20 L Discharge <KATHRYN ALCALA - Last Filed: 04/06/17 22:21> <GRETA HUSAIN - Last Filed: 04/06/17 23:12> - Discharge Clinical Impression: Chest pain Qualifiers: Chest pain type: unspecified Qualified Code(s): R07.9 - Chest pain, unspecified Dyspnea Qualifiers: Dyspnea type: unspecified Qualified Code(s): R06.00 - Dyspnea, unspecified Condition: Stable Disposition: HOME, SELF-CARE Instructions: Chest Pain of Unclear Cause ([facility]), Dyspnea, Nonspecific ([facility]) Referrals: DEBRA CAMPBELL MD [Primary Care Provider] - Follow up tomorrow KRYSTIAN CARRILLO MD [ACTIVE STAFF] - Follow up as needed Scribe Attestation: 04/06/17 23:12 I personally performed the services described in the documentation, reviewed and edited the documentation which was dictated to the scribe in my presence, and it accurately records my words and actions. (GRETA HUSAIN) Scribe Documentation - Scribe Written by Scribe:: Deacon Vela, 04/06/2017 1639 acting as scribe for :: Belinda <KATHRYN ALCALA - Last Filed: 04/06/17 22:21>
[2017-04-06] MEDS ORDERED: NORMAL SALINE 1000 ML 500 ML IV ONE (16:00)
--- NOTE | 2017-04-06 16:00 | RADIOLOGY REPORT (SQ) ---
EXAM DESCRIPTION: CHEST PA/LAT COMPLETED DATE/TIME: 04/06/2017 3:36 pm REASON FOR STUDY: cp COMPARISON: 03/12/2013 EXAM PARAMETERS: NUMBER OF VIEWS: two views TECHNIQUE: Digital Frontal and Lateral radiographic views of the chest acquired. RADIATION DOSE: NA LIMITATIONS: none FINDINGS: LUNGS AND PLEURA: No opacities, masses or pneumothorax. No pleural effusion. MEDIASTINUM AND HILAR STRUCTURES: No masses or contour abnormalities. HEART AND VASCULAR STRUCTURES: Heart normal size. No evidence for failure. BONES: No acute findings. HARDWARE: None in the chest. OTHER: No other significant finding. IMPRESSION: NO SIGNIFICANT RADIOGRAPHIC FINDING IN THE CHEST. TECHNICAL DOCUMENTATION: JOB ID: [id number] [employer]- All Rights Reserved
[2017-04-06 16:17] LABS: APPEARANCE,URINE SLIGHTLY-CLOUDY; BILIRUBIN,URINE NEGATIVE (NEGATIVE); GLUCOSE, URINE NEGATIVE (NEGATIVE); KETONES,URINE NEGATIVE (NEGATIVE); LEUKOCYTE ESTERASE,URINE NEGATIVE (NEGATIVE); NITRITE,URINE NEGATIVE (NEGATIVE); PROTEIN,URINE NEGATIVE (NEGATIVE); URINE SPECIFIC GRAVITY 1.017; UROBILINOGEN,URINE NEGATIVE mg/dL (<2.0)
[2017-04-06 17:17] LABS: ABSOLUTE EOSINOPHILS # (AUTO) 0.2 10^3/uL (0.0-0.6); ABSOLUTE LYMPHOCYTES (AUTO) 1.7 10^3/uL (0.5-4.7); ABSOLUTE MONOCYTES (AUTO) 0.7 10^3/uL (0.1-1.4); ABSOLUTE NEUT (AUTO) 5.7 10^3/uL (1.7-8.2); BASOPHILS % (AUTO) 0.3 % (0-2); EOSINOPHILS % (AUTO) 1.9 % (0-6); HEMATOCRIT 31.5 % (36.0-47.0); HEMOGLOBIN 10.7 g/dL (12.0-15.5); HGB HCT DIFFERENCE 0.6; MEAN CORPUSCULAR HEMOGLOBIN 28.9 pg (27.0-33.4); MEAN CORPUSCULAR VOLUME 85 fl (80-97); RED BLOOD COUNT 3.71 10^6/uL (3.72-5.28); RED CELL DISTRIBUTION WIDTH 16.4 % (11.5-14.0); SEGMENTED NEUTROPHILS % (AUTO) 68.8 % (42-78); WHITE BLOOD COUNT 8.2 10^3/uL (4.0-10.5)
[2017-04-06 17:40] LABS: PROTHROMBIN TIME 14.9 SEC (11.4-15.4)
[2017-04-06 17:42] LABS: PARTIAL THROMBOPLASTIN TIME 32.9 SEC (23.5-35.8)
[2017-04-06 17:52] LABS: VENOUS BLOOD BASE EXCESS -0.1 mmol/L; VENOUS BLOOD HCO3 22.9 mmol/L (20-32); VENOUS BLOOD PCO2 32.5 mmHg (35-63); VENOUS BLOOD PH 7.47 (7.30-7.42)
[2017-04-06 18:05] LABS: TROPONIN I < 0.012 ng/mL
[2017-04-06 18:23] LABS: ALANINE AMINOTRANSFERASE 29 U/L (9-52); ALBUMIN 3.6 g/dL (3.5-5.0); ALKALINE PHOSPHATASE 61 U/L (38-126); ANION GAP 15 (5-19); ASPARTATE AMINO TRANSFERASE 16 U/L (14-36); BILIRUBIN,DIRECT 0.3 mg/dL (0.0-0.4); BILIRUBIN,TOTAL 0.5 mg/dL (0.2-1.3); BLOOD UREA NITROGEN 15 mg/dL (7-20); CALCIUM 9.5 mg/dL (8.4-10.2); CARBON DIOXIDE 20 mmol/L (22-30); CHLORIDE 104 mmol/L (98-107); CREATININE RESULT 0.84 mg/dL (0.52-1.25); GLUCOSE 102 mg/dL (75-110); POTASSIUM 3.9 mmol/L (3.6-5.0); SODIUM 138.7 mmol/L (137-145); TOTAL PROTEIN 6.4 g/dL (6.3-8.2)
--- NOTE | 2017-04-06 18:36 | EKG REPORT ---
SEVERITY:- ABNORMAL ECG - SINUS RHYTHM LVH WITH SECONDARY REPOLARIZATION ABNORMALITY ANTERIOR Q WAVES, POSSIBLY DUE TO LVH : Confirmed by: Renetta Lombardo 06-Apr-2017 18:36:00
[2017-04-06] MEDS ORDERED: IPRATROPIUM/ALBUTEROL 0.5-2.5 MG/3 ML AMPUL NEB ONE (19:59)
--- NOTE | 2017-04-06 20:18 | RADIOLOGY REPORT (SQ) ---
EXAM DESCRIPTION: NM LUNG VENT/PERF SCAN COMPLETED DATE/TIME: 04/06/2017 7:20 pm REASON FOR STUDY: SOB COMPARISON: Earlier radiograph RADIONUCLIDE AND DOSE: 5.32 millicuries TC-99m MAA Intravenous 28.4 millicuries TC-99m DTPA Inhaled aerosol TECHNIQUE: Eight views of the lungs acquired post ventilation of DTPA aerosol. Eight matching views of the lungs acquired following injection of MAA. LIMITATIONS: Limited ventilatory distribution of radiotracer. FINDINGS: VENTILATION: Limited distribution of DTPA aerosol during ventilatory phase. PERFUSION: Pe rfusion images with mostly homogenous activity. No ventilation-perfusion mismatches. OTHER: No other significant finding. IMPRESSION: No ventilation-perfusion mismatches.Limited distribution of DTPA aerosol during ventila tory phase. TECHNICAL DOCUMENTATION: JOB ID: [id number] [employer]- All Rights Reserved
[2017-04-06 21:35] VITALS: BP 150/73
== END 2017-04-06 21:45 | disposition home or self-care (01) ==
LOC: ER 13:55 → EH 20:30 → UNDOADMOB 20:30 → ER 21:45
DX: R07.9 Chest pain, unspecified (principal); R06.00 Dyspnea, unspecified; R06.02 Shortness of breath; Z86.718 Personal history of other venous thrombosis and embolism; Z85.3 Personal history of malignant neoplasm of breast; Z79.01 Long term (current) use of anticoagulants; Z79.899 Other long term (current) drug therapy
CPT/HCPCS: 93005; 36591; 94640; 99285; 36415; 87040; 87086; 85025; 85610; 85730; 87077; 80053; 81001; 84484; 82803; 83605; 83880; 71020; 78582; 93010; A9540; A9567; A9270; Q9969; 87186; J7620

== ENCOUNTER 2017-05-16 12:26 | Emergency (ER) | payer MEDICARE, BC ==
[2017-05-16 12:34] VITALS: BP 149/68
--- NOTE | 2017-05-16 16:17 | RADIOLOGY REPORT (SQ) ---
EXAM DESCRIPTION: SOFT TISSUE NECK COMPLETED DATE/TIME: 05/16/2017 4:06 pm REASON FOR STUDY: sore throat, ? swallowed bone COMPARISON: None. NUMBER OF VIEWS: Two views. TECHNIQUE: AP and lateral radiographic image of the soft tissues of the neck. LIMITATIONS: None. FINDINGS: EPIGLOTTIS: Normal. Contour normal. Aryepiglottic folds normal. PREVERTEBRAL SOFT TISSUES: Normal. No soft tissue swelling. SUBGLOTTIC AREA: Normal. No narrowing. RETROPHARYNGEAL SPACE: Normal. No soft tissue masses. BONES: No significant findings. LUNG APICES: Normal. OTHER: No radiopaque foreign body. No other significant finding. IMPRESSION: NEGATIVE STUDY OF THE SOFT TISSUES OF THE NECK. TECHNICAL DOCUMENTATION: JOB ID: [id number] [employer]- All Rights Reserved
--- NOTE | 2017-05-16 16:27 | ER Document Report ---
HPI - HPI Patient complains to provider of: sore throat Onset: Other Onset/Duration: Sudden Quality of pain: Dull Severity: Moderate Pain Level: 3 Context: Patient states she thinks she may have swallowed a turkey bone on . Is able to eat and drink without difficulty, just complains of pain to the left side of her throat. Patient states she ate a piece of bread afterwards to see if she could swallow well. Associated Symptoms: Sore throat Exacerbated by: Other - swallowing Relieved by: Denies Similar symptoms previously: No Recently seen / treated by doctor: No - ROS ROS below otherwise negative: Yes Systems Reviewed and Negative: Yes All other systems reviewed and negative - EENT EENT: REPORTS: Sore Throat - feels like bone - DERM Skin Color: Normal Past Medical History - General Information source: Patient - Social History Smoking Status: Never Smoker Chew tobacco use (# tins/day): No Frequency of alcohol use: None Drug Abuse: None Lives with: Spouse/Significant other Family History: Reviewed & Not Pertinent, Arthritis, CAD, DM, Hyperlipidemia, Hypertension, Malignancy Patient has suicidal ideation: No Patient has homicidal ideation: No - Past Medical History Cardiac Medical History: Reports: Hx Atrial Fibrillation, Hx Congestive Heart Failure - 2006, Hx Coronary Artery Disease, Hx DVT, Hx Hypercholesterolemia, Hx Hypertension, Hx Peripheral Vascular Disease, Hx Pulmonary Embolism - 1996 or 997 Pulmonary Medical History: Reports: Hx Asthma Endocrine Medical History: Reports: Hx Diabetes Mellitus Type 1, Hx Diabetes Mellitus Type 2, Hx Hypothyroidism Renal/ Medical History: Reports: Hx Kidney Stones - 2 wks ago, Hx Renal Insufficiency Malignancy Medical History: Reports: Hx Breast Cancer GI Medical History: Reports: Hx Gastroesophageal Reflux Disease Musculoskeltal Medical History: Reports Hx Arthritis - Back, Reports Hx Musculoskeletal Trauma Traumatic Medical History: Reports: Hx Fractures - hx L ankle Past Surgical History: Reports: Hx Abdominal Surgery - lap band, Hx Cholecystectomy, Hx Orthopedic Surgery - back surgery, Hx Thyroid Surgery, Hx Vascular Surgery - miranda filter - Immunizations Immunizations up to date: Yes Hx Diphtheria, Pertussis, Tetanus Vaccination: Yes Hx Pneumococcal Vaccination: 06/22/00 Vertical Provider Document - CONSTITUTIONAL Agree With Documented VS: Yes Exam Limitations: No Limitations General Appearance: WD/WN, No Apparent Distress - INFECTION CONTROL TRAVEL OUTSIDE OF THE [place] IN LAST 30 DAYS: No - HEENT HEENT: Atraumatic, Normal ENT Exam, Normocephalic - NECK Neck: Normal Inspection, Supple - RESPIRATORY Respiratory: Breath Sounds Normal, No Respiratory Distress O2 Sat by Pulse Oximetry: 100 - CARDIOVASCULAR Cardiovascular: Regular Rate, Regular Rhythm - GI/ABDOMEN Gastrointestinal: Abdomen Soft - MUSCULOSKELETAL/EXTREMETIES Musculoskeletal/Extremeties: MAEW - NEURO Level of Consciousness: Awake, Alert, Appropriate - DERM Integumentary: Warm, Dry Course - Re-evaluation Re-evalutation: 05/16/17 16:26 X-rays were negative and this was discussed with the patient. - Vital Signs Vital signs: Temp Pulse Resp BP Pulse Ox 97.7 F 107 H 20 149/68 H 100 05/16/17 12:32 05/16/17 12:32 05/16/17 12:32 05/16/17 12:32 05/16/17 12:32 Discharge - Discharge Clinical Impression: Sore throat Condition: Good Disposition: HOME, SELF-CARE Additional Instructions: No foreign body was seen on x-ray today Tylenol as needed for discomfort Recommend follow-up with your doctor on Thursday for recheck Return if symptoms worsen and as needed. Referrals: DEBRA CAMPBELL MD [Primary Care Provider] - Follow up as needed
== END 2017-05-16 16:25 | disposition home or self-care (01) ==
LOC: ER 12:26
DX: J02.9 Acute pharyngitis, unspecified (principal); I50.9 Heart failure, unspecified; I25.10 Atherosclerotic heart disease of native coronary artery without angina pectoris; E78.00 Pure hypercholesterolemia, unspecified; I11.0 Hypertensive heart disease with heart failure; E11.9 Type 2 diabetes mellitus without complications; Z86.718 Personal history of other venous thrombosis and embolism; Z87.442 Personal history of urinary calculi; Z85.3 Personal history of malignant neoplasm of breast
CPT/HCPCS: 70360; 99283

== ENCOUNTER → 2017-08-23 | Outpatient (CLI) | payer MEDICARE, BC ==
--- NOTE | 2017-08-24 11:34 | RADIOLOGY REPORT (SQ) ---
EXAM DESCRIPTION: PET CT SKULL/THIGH COMPLETED DATE/TIME: 08/23/2017 8:31 pm REASON FOR STUDY: BREAST CANCER C50.412 MALIG NEOPLASM OF UPPER-OUTER QUADRANT OF LEFT FEMAL COMPARISON: 10/31/2016. RADIONUCLIDE AND DOSE: 10.0 mCi F18 FDG The route of agent administration: Intravenous FASTING BLOOD SUGAR: 127 mg/dl CONTRAST TYPE AND DOSE: No CT contrast given. TECHNIQUE: Blood glucose level was verified. Above dose of FDG was injected intravenously. 2-D seg mented attenuation correction images were obtained from the base of the skull to the midthighs. Nonc ontrast CT images were obtained for attenuation correction and fusion with emission images. CT image s were performed without oral or intravenous contrast and are not sensitive for parenchymal lesions. A series of overlapping emission PET images were obtained. Images reviewed and manipulated at [facility] work station by the radiologist. Images stored on PACS. LIMITATIONS: None. FINDINGS: HEAD AND NECK: There are a few focal areas of slight increased activity in the soft tissue s on the left side of the neck. No discrete mass. There are surgical clips in this general area and this may represent postoperative change. A small focal area of activity in the right supraclavicula r region appears to be related to a blood vessel. CHEST: No areas of abnormal metabolic activity in the chest. There are a few small areas of ground-g lass opacity in the left upper lobe with no abnormal activity on PET imaging. ABDOMEN AND PELVIS: No areas of abnormal metabolic activity in the abdomen or pelvis. Expected physi ologic activity is present in the genitourinary system and bowel. PROXIMAL LOWER EXTREMITIES: No areas of abnormal metabolic activity in the soft tissues of the lower extremities. BONES: No abnormal metabolic activity in the visualized skeleton. ADDITIONAL CT FINDINGS: Surgical changes in the left breast with no abnormal activity. Asymmetric en largement of the right lobe of the thyroid. Gastric banding hardware. Inferior vena cava filter. OTHER: No other significant findings. IMPRESSION: 1. GENERALLY UNREMARKABLE PET SCAN. THERE ARE SURGICAL CHANGES IN THE LEFT BREAST WITH NO ABNORMAL A CTIVITY. PREVIOUSLY SEEN ACTIVITY IN THE BONE MARROW OF THE AXIAL SKELETON HAS RESOLVED. MILD ACTIV ITY IN THE LEFT SIDE OF THE NECK MAY BE DUE TO POSTOPERATIVE CHANGE. 2. A FEW FAINT GROUND-GLASS OPACITIES IN THE LEFT UPPER LOBE WITH NO ABNORMAL ACTIVITY. THIS MAY REP RESENT FOCAL AREAS OF MILD PNEUMONITIS. 3. OTHER INCIDENTAL CT FINDINGS ABOVE. TECHNICAL DOCUMENTATION: JOB ID: [id number] [employer]- All Rights Reserved Reading location - IP/workstation name: [email or web address]
== END ==
LOC: RAD 17:48
PROVIDERS: ATTEND Internal Medicine Medical Oncology
DX: C50.412 Malignant neoplasm of upper-outer quadrant of left female breast (principal)
CPT/HCPCS: 78815; A9552

== ENCOUNTER → 2017-08-25 | Outpatient (CLI) | payer MEDICARE, BC ==
--- NOTE | 2017-08-25 16:23 | RADIOLOGY REPORT (SQ) ---
EXAM DESCRIPTION: CT ABD/PELVIS WITH IV ONLY COMPLETED DATE/TIME: 08/25/2017 4:06 pm REASON FOR STUDY: R10.32 LEFT LOWER QUADRANT PAIN R10.32 LEFT LOWER QUADRANT PAIN COMPARISON: None. TECHNIQUE: CT scan of the abdomen and pelvis performed using helical scanning technique with dynamic intravenous contrast injection. No oral contrast. Images reviewed with lung, soft tissue, and bone windows. Reconstructed coronal and sagittal MPR images reviewed. Delayed images for evaluation of the urinary system also acquired. All images stored on PACS. All CT scanners at this facility use dose modulation, iterative reconstruction, and/or weight based d osing when appropriate to reduce radiation dose to as low as reasonably achievable (ALARA). [facility]: Dose Right [facility]: CareDose [facility]: Dose Right [facility]: Teradose 4D [facility]: Xatori CONTRAST TYPE AND DOSE: contrast/concentration: Isovue 370.00 mg/ml; Total Contrast Delivered: 100.0 ml; Total Saline Delivered: 45.0 ml RENAL FUNCTION: Creatinine 1.1 RADIATION DOSE: CT Rad equipment meets quality standard of care and radiation dose reduction techniq ues were employed. CTDIvol: 21.0 - 21.1 mGy. DLP: 2242 mGy-cm.. LIMITATIONS: None. FINDINGS: LOWER CHEST: No significant findings. No nodules or infiltrates. LIVER: Normal size. No masses. No dilated ducts. SPLEEN: Normal size. No focal lesions. PANCREAS: No masses. No significant calcifications. No adjacent inflammation or peripancreatic fluid collections. Pancreatic duct not dilated. GALLBLADDER: Surgically absent. ADRENAL GLANDS: No significant masses or asymmetry. RIGHT KIDNEY AND URETER: No solid masses. No significant calcifications. No hydronephrosis or hyd roureter. LEFT KIDNEY AND URETER: No solid masses. No significant calcifications. No hydronephrosis or hydr oureter. AORTA AND VESSELS: No aneurysm. No dissection. Renal arteries, SMA, celiac without stenosis. RETROPERITONEUM: No retroperitoneal adenopathy, hemorrhage or masses. BOWEL AND PERITONEAL CAVITY: A band is present around the gastroesophageal junction. No acute abnorm ality is seen in the GI tract. There are no inflammatory changes. There is no bowel obstruction. APPENDIX: Normal. PELVIS: No mass. No free fluid. Normal bladder. ABDOMINAL WALL: No masses. No hernias. BONES: Mild scoliosis. No acute abnormality. OTHER: No other significant finding. IMPRESSION: NO SIGNIFICANT OR ACUTE FINDING IN THE ABDOMEN OR PELVIS ON CT SCAN WITH IV CONTRAST. S URGICAL CHANGES. TECHNICAL DOCUMENTATION: JOB ID: [id number] Quality ID # [id number]: Final reports with documentation of one or more dose reduction techniques (e.g., Au tomated exposure control, adjustment of the mA and/or kV according to patient size, use of iterative reconstruction technique) 2010 [employer]- All Rights Reserved Reading location - IP/workstation name: [email or web address]
== END ==
LOC: RAD 15:44
PROVIDERS: ATTEND Internal Medicine
DX: R10.32 Left lower quadrant pain (principal)
CPT/HCPCS: 74177; 82565

== ENCOUNTER → 2017-08-31 | Outpatient (CLI) | payer MEDICARE, BC ==
--- NOTE | 2017-08-31 16:32 | RADIOLOGY REPORT (SQ) ---
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 RADIONUCLIDE AND DOSE: 27.3 mCi technetium 99 M pyrophosphate labeled red blood cells. The route of agent administration: Intravenous TECHNIQUE: Following administration of the radionuclide, gated images of the heart are obtained in t hree projections. Left ventricular functional analysis performed. LIMITATIONS: None. FINDINGS: LEFT VENTRICULAR FUNCTION: EJECTION FRACTION: 78%. END-DIASTOLIC VOLUME: 87 mL. END-SYSTOLIC VOLUME: 18 mL. WALL MOTION: No focal wall motion abnormalities. OTHER: No other significant finding. IMPRESSION: NORMAL CARDIAC MUGA STUDY. NORMAL LEFT VENTRICULAR FUNCTION WITH VALUES ABOVE. TECHNICAL DOCUMENTATION: JOB ID: [id number] [employer]- All Rights Reserved Reading location - IP/workstation name: [email or web address]
== END ==
LOC: RAD 14:48
PROVIDERS: ATTEND Internal Medicine Medical Oncology
DX: I42.7 Cardiomyopathy due to drug and external agent (principal)
CPT/HCPCS: 78472; A9560; Q9969

== ENCOUNTER → 2017-09-28 | Outpatient (CLI) | payer MEDICARE, BC ==
--- NOTE | 2017-09-28 18:06 | WOMENS IMAGING REPORT ---
EXAM DESCRIPTION: BILAT DIAGNOSTIC MAMMO W/CAD COMPLETED DATE/TIME: 09/28/2017 9:13 am REASON FOR STUDY: PERSONAL HISTORY OF MALIGNANT NEOPLASM; Z85.3 Z85.3 PERSONAL HISTORY OF MALIGNANT NEOPLASM OF BREAST COMPARISON: Multiple since 2008 TECHNIQUE: Standard craniocaudal and mediolateral oblique views of each breast recorded using digita l acquisition. Additional left breast 90 mediolateral view, additional compression magnification views of the lumpe ctomy site in the left breast upper outer quadrant. LIMITATIONS: None. FINDINGS: RIGHT BREAST MASSES: No suspicious masses. CALCIFICATIONS: No new or suspicious calcifications. ARCHITECTURAL DISTORTION: None. DEVELOPING DENSITY: None. ASYMMETRY: None noted. OTHER: No other significant findings. LEFT BREAST MASSES: No suspicious masses. CALCIFICATIONS: No new or suspicious calcifications. ARCHITECTURAL DISTORTION: There is postoperative change in the left breast upper outer quadrant with radiopaque markers at the lumpectomy site. . DEVELOPING DENSITY: None. ASYMMETRY: None noted. OTHER: There is skin thickening over the left breast from radiation therapy Read with the assistance of CAD: .[facility] - R2 Cenova Version 1.3 .[facility] - R2 Cenova Version 1.3 .[facility] - R2 Cenova Version 2.[address] - R2 Cenova Version 2.4 .[facility] - R2 [employer] Version 9.2 IMPRESSION: No mammographic evidence for malignancy bilaterally. BREAST DENSITY: b. There are scattered areas of fibroglandular density. BIRAD: 2 Benign findings. RECOMMENDATION: RECOMMENDED FOLLOW UP: Please continue right breast screening, left breast diagnosti c mammograms in September 2018 SPECIFIC INTERVENTION/IMAGING/CONSULTATION RECOMMENDED:No additional intervention/ imaging/consultati on needed at this time. COMMUNICATION:Patient notified by letter COMMENT: The patient has been notified of the results by letter per SA requirements. Additional no tification policies are in place for contacting patient with suspicious or incomplete findings. Quality ID #[id number]: The [employer] recommends an annual screening mammogram for women aged 40 years or over. This facility utilizes a reminder system to ensure that all patients receive reminder letters, and/or direct phone calls for appointments. This includes reminders for routine scr eening mammograms, diagnostic mammograms, or other Breast Imaging Interventions when appropriate. Th is patient will be placed in the appropriate reminder system. The [employer] (ACR) has developed recommendations for screening MRI of the breast s in certain patient populations, to be used in conjunction with mammography. Breast MRI surveillanc e may be appropriate for women with more than 20% lifetime risk of developing breast cancer as deter mined by genetic testing, significant family history of the disease, or history of mantle radiation f or Hodgkins Disease. ACR Practice Guidelines 2008. TECHNICAL DOCUMENTATION: FINDING NUMBER: (1) ASSESSMENT: (1) JOB ID: [id number] [employer]- All Rights Reserved Reading location - IP/workstation name: [facility]
== END ==
LOC: WI 08:40
PROVIDERS: ATTEND Surgery
DX: Z85.3 Personal history of malignant neoplasm of breast (principal)
CPT/HCPCS: 77066

== ENCOUNTER → 2017-11-09 | Outpatient (CLI) | payer MEDICARE, BC ==
[2017-11-09 12:03] LABS: ABSOLUTE EOSINOPHILS # (AUTO) 0.1 10^3/uL (0.0-0.6); ABSOLUTE LYMPHOCYTES (AUTO) 1.2 10^3/uL (0.5-4.7); ABSOLUTE MONOCYTES (AUTO) 0.5 10^3/uL (0.1-1.4); ABSOLUTE NEUT (AUTO) 5.3 10^3/uL (1.7-8.2); BASOPHILS % (AUTO) 0.6 % (0-2); EOSINOPHILS % (AUTO) 1.8 % (0-6); HEMATOCRIT 39.6 % (36.0-47.0); HEMOGLOBIN 13.2 g/dL (12.0-15.5); LYMPHOCYTES % (AUTO) 16.4 % (13-45); MEAN CORPUSCULAR HGB CONC 33.3 g/dL (32.0-36.0); MEAN CORPUSCULAR VOLUME 84 fl (80-97); MONOCYTES % (AUTO) 6.8 % (3-13); PLATELET COUNT 286 10^3/uL (150-450); RED BLOOD COUNT 4.71 10^6/uL (3.72-5.28); RED CELL DISTRIBUTION WIDTH 15.9 % (11.5-14.0); SEGMENTED NEUTROPHILS % (AUTO) 74.4 % (42-78); TOTAL CELLS COUNTED % (AUTO) 100 %; WHITE BLOOD COUNT 7.1 10^3/uL (4.0-10.5)
[2017-11-09 12:28] LABS: ALANINE AMINOTRANSFERASE 23 U/L (9-52); ALBUMIN 4.1 g/dL (3.5-5.0); ALKALINE PHOSPHATASE 82 U/L (38-126); ANION GAP 13 (5-19); ASPARTATE AMINO TRANSFERASE 16 U/L (14-36); BILIRUBIN,DIRECT 0.3 mg/dL (0.0-0.4); BILIRUBIN,TOTAL 0.3 mg/dL (0.2-1.3); BLOOD UREA NITROGEN 23 mg/dL (7-20); CALCIUM 9.6 mg/dL (8.4-10.2); CARBON DIOXIDE 27 mmol/L (22-30); CHLORIDE 102 mmol/L (98-107); GLUCOSE 158 mg/dL (75-110); POTASSIUM 4.3 mmol/L (3.6-5.0); SODIUM 141.5 mmol/L (137-145); TOTAL PROTEIN 7.2 g/dL (6.3-8.2)
[2017-11-09 12:32] LABS: APPEARANCE,URINE CLEAR; BILIRUBIN,URINE NEGATIVE (NEGATIVE); COLOR,URINE YELLOW; GLUCOSE, URINE >=500 mg/dL (NEGATIVE); KETONES,URINE NEGATIVE (NEGATIVE); LEUKOCYTE ESTERASE,URINE TRACE (NEGATIVE); NITRITE,URINE NEGATIVE (NEGATIVE); PROTEIN,URINE NEGATIVE (NEGATIVE); URINE SPECIFIC GRAVITY 1.027; UROBILINOGEN,URINE NEGATIVE mg/dL (<2.0)
[2017-11-09 13:06] LABS: UR PRO/CREAT RATIO RESULT 0.1 mg/mg (0.0-0.2); URINE CREATININE 76.8 mg/dL (15-278)
[2017-11-09 18:31] LABS: FREE T4 (FREE THYROXINE) 1.67 ng/dL (0.78-2.19)
[2017-11-09 18:45] LABS: THYROID STIMULATING HORMONE 0.32 uIU/mL (0.47-4.68)
[2017-11-10 12:38] LABS: CREATININE URINE 72.4 mg/dL (Not Estab.); MICROALBUMIN URINE <3.0 ug/mL (Not Estab.)
[2017-11-11 13:03] LABS: CHOLESTEROL 238.47 mg/dL (0-200); TRIGLYCERIDES 171 mg/dL (<150)
[2017-11-11 13:14] LABS: DIRECT LDL 138 mg/dL (<100)
[2017-11-11 13:18] LABS: VLDL CHOLESTEROL 34.2 mg/dL (10-31)
== END ==
LOC: OD 10:48
PROVIDERS: ATTEND Internal Medicine
DX: E11.42 Type 2 diabetes mellitus with diabetic polyneuropathy (principal)
CPT/HCPCS: 36415; 80053; 80061; 81001; 82043; 82570; 83036; 84156; 84439; 84443; 84550; 85025

== ENCOUNTER → 2018-03-31 | Outpatient (CLI) | payer MEDICARE, BC ==
--- NOTE | 2018-03-31 16:59 | WOMENS IMAGING REPORT ---
EXAM DESCRIPTION: LEFT DIAGNOSTIC MAMMO W/CAD; U/S BREAST UNILAT LIMITED COMPLETED DATE/TIME: 03/31/2018 9:30 am; 03/31/2018 10:44 am REASON FOR STUDY: LEFT BREAST LUMP; LT BREAST LUMP N63.21 N63.21 UNSPECIFIED LUMP IN THE LEFT BREAS T, UPPER OUTER QUAD COMPARISON: Multiple since 2008 TECHNIQUE: Standard craniocaudal, 90 mediolateral and mediolateral oblique images of the breast rec orded with digital acquisition. Left breast ultrasound was also performed LIMITATIONS: None. FINDINGS: BREAST: left MASSES: Well-circumscribed low-density 5 cm mass in the upper outer quadrant in the area prior surger y, 1 to 2 o'clock position left breast 5 cm from the nipple. CALCIFICATIONS: No new or suspicious calcifications. ARCHITECTURAL DISTORTION: None. DEVELOPING DENSITY: None. ASYMMETRY: None noted. OTHER: Left breast skin thickening post radiation therapy Read with the assistance of CAD. .[facility] - R2 Cenova Version 1.3 .[facility] - R2 Cenova Version 1.3 .[facility] - R2 Cenova Version 2.4 .[facility] [place] R2 Cenova Version 2.4 [facility] - R2 Stick Feeder Version 9.2 Left breast ultrasound: At the 1 to 2 o'clock position, a 4.5 x 5 cm complex cystic area is present in the area of prior lump ectomy. This most likely represents a chronic seroma. No internal color flow. There is skin thickening post radiation therapy in the periareolar region left breast. IMPRESSION: Postoperative seroma left breast upper outer quadrant 1 to 2 o'clock position. Postradi ation change left breast BREAST DENSITY: b. There are scattered areas of fibroglandular density. BIRAD: 2 Benign findings. RECOMMENDATION: RECOMMENDED FOLLOW UP: Please continue bilateral mammography/tomosynthesis in September 2018, right breast screening left breast diagnostic SPECIFIC INTERVENTION/IMAGING/CONSULTATION RECOMMENDED:No additional intervention/ imaging/consultati on needed at this time. COMMUNICATION:The negative/benign results were communicated to the patient. COMMENT: The patient has been notified of the results by letter per MQSA requirements. Additional no tification policies are in place for contacting patient with suspicious or incomplete findings. Quality ID #225: The [employer] recommends an annual screening mammogram for women aged 40 years or over. This facility utilizes a reminder system to ensure that all patients receive reminder letters, and/or direct phone calls for appointments. This includes reminders for routine scr eening mammograms, diagnostic mammograms, or other Breast Imaging Interventions when appropriate. Th is patient will be placed in the appropriate reminder system. The [employer] (ACR) has developed recommendations for screening MRI of the breast s in certain patient populations, to be used in conjunction with mammography. Breast MRI surveillanc e may be appropriate for women with more than 20% lifetime risk of developing breast cancer as deter mined by genetic testing, significant family history of the disease, or history of mantle radiation f or Hodgkins Disease. ACR Practice Guidelines 2008. TECHNICAL DOCUMENTATION: FINDING NUMBER: (1) ASSESSMENT: (1) JOB ID: [id number]- All Rights Reserved Reading location - IP/workstation name: [email or web address]-[email or web address]
--- NOTE | 2018-03-31 16:59 | WOMENS IMAGING REPORT ---
EXAM DESCRIPTION: LEFT DIAGNOSTIC MAMMO W/CAD; U/S BREAST UNILAT LIMITED COMPLETED DATE/TIME: 03/31/2018 9:30 am; 03/31/2018 10:44 am REASON FOR STUDY: LEFT BREAST LUMP; LT BREAST LUMP N63.21 N63.21 UNSPECIFIED LUMP IN THE LEFT BREAS T, UPPER OUTER QUAD COMPARISON: Multiple since 2008 TECHNIQUE: Standard craniocaudal, 90 mediolateral and mediolateral oblique images of the breast rec orded with digital acquisition. Left breast ultrasound was also performed LIMITATIONS: None. FINDINGS: BREAST: left MASSES: Well-circumscribed low-density 5 cm mass in the upper outer quadrant in the area prior surger y, 1 to 2 o'clock position left breast 5 cm from the nipple. CALCIFICATIONS: No new or suspicious calcifications. ARCHITECTURAL DISTORTION: None. DEVELOPING DENSITY: None. ASYMMETRY: None noted. OTHER: Left breast skin thickening post radiation therapy Read with the assistance of CAD. .[facility] - R2 Cenova Version 1.3 .[facility] Imaging - R2 Cenova Version 1.3 .[facility] Imaging - R2 Cenova Version 2.4 .[facility] [place] R2 Cenova Version 2.4 .[facility] - R2 Furnace Roaster Version 9.2 Left breast ultrasound: At the 1 to 2 o'clock position, a 4.5 x 5 cm complex cystic area is present in the area of prior lump ectomy. This most likely represents a chronic seroma. No internal color flow. There is skin thickening post radiation therapy in the periareolar region left breast. IMPRESSION: Postoperative seroma left breast upper outer quadrant 1 to 2 o'clock position. Postradi ation change left breast BREAST DENSITY: b. There are scattered areas of fibroglandular density. BIRAD: 2 Benign findings. RECOMMENDATION: RECOMMENDED FOLLOW UP: Please continue bilateral mammography/tomosynthesis in September 2018, right breast screening left breast diagnostic SPECIFIC INTERVENTION/IMAGING/CONSULTATION RECOMMENDED:No additional intervention/ imaging/consultati on needed at this time. COMMUNICATION:The negative/benign results were communicated to the patient. COMMENT: The patient has been notified of the results by letter per MQSA requirements. Additional no tification policies are in place for contacting patient with suspicious or incomplete findings. Quality ID #225: The [employer] recommends an annual screening mammogram for women aged 40 years or over. This facility utilizes a reminder system to ensure that all patients receive reminder letters, and/or direct phone calls for appointments. This includes reminders for routine scr eening mammograms, diagnostic mammograms, or other Breast Imaging Interventions when appropriate. Th is patient will be placed in the appropriate reminder system. The [employer] (ACR) has developed recommendations for screening MRI of the breast s in certain patient populations, to be used in conjunction with mammography. Breast MRI surveillanc e may be appropriate for women with more than 20% lifetime risk of developing breast cancer as deter mined by genetic testing, significant family history of the disease, or history of mantle radiation f or Hodgkins Disease. ACR Practice Guidelines 2008. TECHNICAL DOCUMENTATION: FINDING NUMBER: (1) ASSESSMENT: (1) JOB ID: [id number] [employer]- All Rights Reserved Reading location - IP/workstation name: [facility]-[email or web address]
== END ==
LOC: WI 09:04
PROVIDERS: ATTEND Surgery
DX: N63.21 Unspecified lump in the left breast, upper outer quadrant (principal)
CPT/HCPCS: 76642

== ENCOUNTER → 2018-04-29 | Outpatient (CLI) | payer MEDICARE, BC ==
[2018-04-29 11:35] LABS: ABSOLUTE EOSINOPHILS # (AUTO) 0.2 10^3/uL (0.0-0.6); ABSOLUTE LYMPHOCYTES (AUTO) 1.4 10^3/uL (0.5-4.7); ABSOLUTE MONOCYTES (AUTO) 0.5 10^3/uL (0.1-1.4); ABSOLUTE NEUT (AUTO) 4.2 10^3/uL (1.7-8.2); BASOPHILS % (AUTO) 0.5 % (0-2); EOSINOPHILS % (AUTO) 2.5 % (0-6); HEMATOCRIT 43.6 % (36.0-47.0); HEMOGLOBIN 14.5 g/dL (12.0-15.5); LYMPHOCYTES % (AUTO) 22.1 % (13-45); MEAN CORPUSCULAR HEMOGLOBIN 27.4 pg (27.0-33.4); MEAN CORPUSCULAR HGB CONC 33.2 g/dL (32.0-36.0); MEAN CORPUSCULAR VOLUME 83 fl (80-97); PLATELET COUNT 282 10^3/uL (150-450); RED BLOOD COUNT 5.27 10^6/uL (3.72-5.28); RED CELL DISTRIBUTION WIDTH 17.9 % (11.5-14.0); SEGMENTED NEUTROPHILS % (AUTO) 66.9 % (42-78); TOTAL CELLS COUNTED % (AUTO) 100 %; WHITE BLOOD COUNT 6.3 10^3/uL (4.0-10.5)
[2018-04-29 11:50] LABS: ALANINE AMINOTRANSFERASE 18 U/L (9-52); ALBUMIN 3.8 g/dL (3.5-5.0); ALKALINE PHOSPHATASE 106 U/L (38-126); ANION GAP 15 (5-19); ASPARTATE AMINO TRANSFERASE 13 U/L (14-36); BILIRUBIN,DIRECT 0.1 mg/dL (0.0-0.4); BILIRUBIN,TOTAL 0.5 mg/dL (0.2-1.3); BLOOD UREA NITROGEN 14 mg/dL (7-20); CALCIUM 9.3 mg/dL (8.4-10.2); CARBON DIOXIDE 24 mmol/L (22-30); CHLORIDE 101 mmol/L (98-107); CHOLESTEROL 204.02 mg/dL (0-200); GLUCOSE 173 mg/dL (75-110); POTASSIUM 4.4 mmol/L (3.6-5.0); SODIUM 140.1 mmol/L (137-145); TOTAL PROTEIN 6.9 g/dL (6.3-8.2); TRIGLYCERIDES 144 mg/dL (<150); URIC ACID 5.4 mg/dL (2.5-7.5)
[2018-04-29 12:02] LABS: DIRECT LDL 132 mg/dL (<100)
[2018-04-29 12:07] LABS: FREE T4 (FREE THYROXINE) 1.33 ng/dL (0.78-2.19)
[2018-04-29 12:21] LABS: THYROID STIMULATING HORMONE 1.97 uIU/mL (0.47-4.68)
--- NOTE | 2018-04-29 12:56 | RADIOLOGY REPORT (SQ) ---
EXAM DESCRIPTION: KNEE LEFT 2 VIEWS COMPLETED DATE/TIME: 04/29/2018 11:23 am REASON FOR STUDY: PAIN IN LEFT KNEE E11.9 TYPE 2 DIABETES MELLITUS WITHOUT COMPLICATIONS M25.562 P AIN IN LEFT KNEE No known injury, pain left knee for 2 weeks COMPARISON: None. NUMBER OF VIEWS: Two views TECHNIQUE: AP and lateral radiographic images acquired of the left knee. LIMITATIONS: None. FINDINGS: MINERALIZATION: Normal. BONES: No acute fracture or dislocation. No worrisome bone lesions. JOINT: No suprapatellar knee joint effusion. Moderate patellofemoral and medial compartment joint sp magalie narrowing and bony spurring. SOFT TISSUES: No soft tissue swelling. No radio-opaque foreign body. OTHER: No other significant finding. IMPRESSION: Patellofemoral and medial compartment osteoarthritis, left knee. No acute fracture or m alalignment TECHNICAL DOCUMENTATION: JOB ID: [id number] [employer]- All Rights Reserved Reading location - IP/workstation name: [facility]-[email or web address]
[2018-04-29 15:43] LABS: APPEARANCE,URINE CLEAR; BILIRUBIN,URINE NEGATIVE (NEGATIVE); COLOR,URINE YELLOW; GLUCOSE, URINE >=500 mg/dL (NEGATIVE); KETONES,URINE NEGATIVE (NEGATIVE); LEUKOCYTE ESTERASE,URINE NEGATIVE (NEGATIVE); NITRITE,URINE NEGATIVE (NEGATIVE); PROTEIN,URINE NEGATIVE (NEGATIVE); URINE SPECIFIC GRAVITY 1.022; UROBILINOGEN,URINE NEGATIVE mg/dL (<2.0)
[2018-05-01 12:37] LABS: CREATININE URINE 107.4 mg/dL (Not Estab.); MICROALBUMIN URINE 4.3 ug/mL (Not Estab.)
== END ==
LOC: OD 10:29
PROVIDERS: ATTEND Internal Medicine
DX: E11.9 Type 2 diabetes mellitus without complications (principal); M25.562 Pain in left knee
CPT/HCPCS: 36415; 80053; 80061; 81001; 82043; 82570; 83036; 84439; 84443; 84550; 85025

== ENCOUNTER → 2018-07-23 | Outpatient (CLI) | payer MEDICARE, BC | LOC: OD 15:32 | PROVIDERS: ATTEND Internal Medicine | DX: M79.605 Pain in left leg (principal) ==

== ENCOUNTER 2018-08-11 21:38 | Emergency (ER) | payer MEDICARE, BC ==
--- NOTE | 2018-08-11 22:57 | RADIOLOGY REPORT (SQ) ---
EXAM DESCRIPTION: XR CHEST 1 VIEW COMPLETED DATE/TME: 08/11/2018 21:59 CLINICAL HISTORY: 62 years, Female, cp COMPARISON: 04/06/2017 chest NUMBER OF VIEWS: 1 TECHNIQUE: Portable chest LIMITATIONS: None. FINDINGS: Heart size is normal. Right PICC catheter with the tip in the SVC. No pneumothorax. Lungs are clear. Surgical clips project over the left costophrenic angle IMPRESSION: No acute cardiopulmonary process copyright 2010 [employer]- All Rights Reserved
[2018-08-12] MEDS ORDERED: IPRATROPIUM/ALBUTEROL 0.5-2.5 MG/3 ML AMPUL NEB ONE ×2 (01:06→03:40)
--- NOTE | 2018-08-12 01:10 | ER Document Report ---
ED Medical Screen (RME) - General Chief Complaint: Chest Pain Stated Complaint: CHEST PAIN/LEG PAIN Time Seen by Provider: 08/12/18 01:05 Primary Care Provider: DEBRA CAMPBELL MD [Primary Care Provider] - Follow up as needed Notes: 62-year-old -Filipino female coming in [facility] with right-sided chest pain that she relates to coughing from an upper respiratory infection. Also been having some right leg pain and swelling. She is on Xarelto. 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 I have treated and performed a rapid initial assessment of this patient. A comprehensive ED assessment and evaluation of the patient, analysis of test results and completion of medical decision making process will be conducted by additional ED providers. PHYSICAL EXAMINATION: GENERAL: Well-appearing, well-nourished and in no acute distress. A&Ox4. Answers questions appropriately. LUNGS: Diminished breath sounds bilaterally HEART: Regular rate and rhythm without murmurs, rubs, gallops. ABDOMEN: Soft, nondistended abdomen. No guarding, no rebound. Normal bowel sounds present. No CVA tenderness bilaterally. + mild epigastric tenderness (cannot elicit thorough abd exam w/o table, however). Extremities: Right lower extremity with compression stockings. Unable to check for pulses. Calf is tender to squeeze. NEUROLOGICAL: Normal speech, normal gait. PSYCH: Normal mood, normal affect. TRAVEL OUTSIDE OF THE [place] IN LAST 30 DAYS: No - Related Data Allergies/Adverse Reactions: iodine [Iodine] Allergy (Severe, Verified 04/06/17 14:22) swelling, itch, resp distress Past Medical History - Past Medical History Cardiac Medical History: Reports: Hx Atrial Fibrillation, Hx Congestive Heart Failure - 2006, Hx Coronary Artery Disease, Hx DVT, Hx Hypercholesterolemia, Hx Hypertension, Hx Peripheral Vascular Disease, Hx Pulmonary Embolism - 1996 or 997 Pulmonary Medical History: Reports: Hx Asthma Endocrine Medical History: Reports: Hx Diabetes Mellitus Type 1, Hx Diabetes Mellitus Type 2, Hx Hypothyroidism Renal/ Medical History: Reports: Hx Kidney Stones - 2 wks ago, Hx Renal Insufficiency. Denies: Hx Peritoneal Dialysis Malignancy Medical History: Reports: Hx Breast Cancer GI Medical History: Reports: Hx Gastroesophageal Reflux Disease Musculoskeltal Medical History: Reports Hx Arthritis - Back, Reports Hx Musculoskeletal Trauma Traumatic Medical History: Reports: Hx Fractures - hx L ankle Past Surgical History: Reports: Hx Abdominal Surgery - lap band, Hx Cholecystectomy, Hx Orthopedic Surgery - back surgery, Hx Thyroid Surgery, Hx Vascular Surgery - miranda filter - Immunizations Immunizations up to date: Yes Hx Diphtheria, Pertussis, Tetanus Vaccination: Yes Physical Exam - Vital signs Vitals: Temp Pulse Resp BP Pulse Ox 98.5 F 91 17 150/91 H 98 08/11/18 22:16 08/11/18 22:16 08/11/18 22:16 08/11/18 22:16 08/11/18 22:16 Course - Vital Signs Vital signs: Temp Pulse Resp BP Pulse Ox 98.5 F 91 17 150/91 H 98 08/11/18 22:16 08/11/18 22:16 08/11/18 22:16 08/11/18 22:16 08/11/18 22:16 Doctor's Discharge - Discharge Referrals: DEBRA CAMPBELL MD [Primary Care Provider] - Follow up as needed
[2018-08-12 02:26] LABS: ABSOLUTE BASOPHILS # (AUTO) 0.1 10^3/uL (0.0-0.2); ABSOLUTE LYMPHOCYTES (AUTO) 1.7 10^3/uL (0.5-4.7); ABSOLUTE MONOCYTES (AUTO) 0.5 10^3/uL (0.1-1.4); BASOPHILS % (AUTO) 0.9 % (0-2); EOSINOPHILS % (AUTO) 0.4 % (0-6); HEMATOCRIT 46.3 % (36.0-47.0); HEMOGLOBIN 15.4 g/dL (12.0-15.5); LYMPHOCYTES % (AUTO) 14.7 % (13-45); MEAN CORPUSCULAR HEMOGLOBIN 28.7 pg (27.0-33.4); MEAN CORPUSCULAR HGB CONC 33.3 g/dL (32.0-36.0); MEAN CORPUSCULAR VOLUME 86 fl (80-97); MONOCYTES % (AUTO) 4.3 % (3-13); PLATELET COUNT 305 10^3/uL (150-450); RED BLOOD COUNT 5.38 10^6/uL (3.72-5.28); RED CELL DISTRIBUTION WIDTH 16.5 % (11.5-14.0); SEGMENTED NEUTROPHILS % (AUTO) 79.7 % (42-78); TOTAL CELLS COUNTED % (AUTO) 100 %; WHITE BLOOD COUNT 11.3 10^3/uL (4.0-10.5)
[2018-08-12 02:31] LABS: INTERNATIONAL RATION (INR) 1.53; PROTHROMBIN TIME 19.2 SEC (11.4-15.4)
[2018-08-12 02:32] LABS: PARTIAL THROMBOPLASTIN TIME 28.7 SEC (23.5-35.8)
[2018-08-12 02:37] LABS: ALANINE AMINOTRANSFERASE 16 U/L (9-52); ALBUMIN 4.1 g/dL (3.5-5.0); ALKALINE PHOSPHATASE 120 U/L (38-126); ANION GAP 13 (5-19); ASPARTATE AMINO TRANSFERASE 14 U/L (14-36); BILIRUBIN,DIRECT 0.2 mg/dL (0.0-0.4); BILIRUBIN,TOTAL 0.6 mg/dL (0.2-1.3); BLOOD UREA NITROGEN 25 mg/dL (7-20); CALCIUM 9.5 mg/dL (8.4-10.2); CARBON DIOXIDE 25 mmol/L (22-30); CHLORIDE 99 mmol/L (98-107); CREATINE KINASE 56 U/L (30-135); GLUCOSE 232 mg/dL (75-110); POTASSIUM 5.4 mmol/L (3.6-5.0); SODIUM 136.6 mmol/L (137-145); TOTAL PROTEIN 6.7 g/dL (6.3-8.2)
[2018-08-12 02:49] LABS: CREATINE KINASE MB 0.33 ng/mL (<4.55)
[2018-08-12 02:53] LABS: TROPONIN I < 0.012 ng/mL
--- NOTE | 2018-08-12 04:02 | ER Document Report ---
ED General - General Chief Complaint: Chest Pain Stated Complaint: CHEST PAIN/LEG PAIN Time Seen by Provider: 08/12/18 01:05 Primary Care Provider: DEBRA CAMPBELL MD [Primary Care Provider] - Follow up as needed Notes: Patient is a 62-year-old female presents with complaint difficulty breathing cough and congestion. Says she has pain in her chest whenever she coughs. She does have history of PE but is on Xarelto. 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 She takes Xarelto for this. She has some pain in her legs at this time that is worse on the right side. She says she is actually due for upper GI endoscopy at 7 or 8 in the morning. She is followed by Dr. Campbell. She says she has been taking her medicines but skipped her first dose of Xarelto today because she does have the procedure this morning. She is currently seeing a breathing treatment was ordered in triage. She said this is helping significantly. She was placed on prednisone by her primary care doctor for bronchitis. She states she is currently taking that. TRAVEL OUTSIDE OF THE [place] IN LAST 30 DAYS: No - Related Data Allergies/Adverse Reactions: iodine [Iodine] Allergy (Severe, Verified 04/06/17 14:22) swelling, itch, resp distress Past Medical History - Social History Smoking Status: Never Smoker Frequency of alcohol use: None Drug Abuse: None Family History: Reviewed & Not Pertinent, Arthritis, CAD, DM, Hyperlipidemia, Hypertension, Malignancy Patient has suicidal ideation: No Patient has homicidal ideation: No - Past Medical History Cardiac Medical History: Reports: Hx Atrial Fibrillation, Hx Congestive Heart Failure - 2006, Hx Coronary Artery Disease, Hx DVT, Hx Hypercholesterolemia, Hx Hypertension, Hx Peripheral Vascular Disease, Hx Pulmonary Embolism - 1996 or 997 Pulmonary Medical History: Reports: Hx Asthma Endocrine Medical History: Reports: Hx Diabetes Mellitus Type 1, Hx Diabetes Mellitus Type 2, Hx Hypothyroidism Renal/ Medical History: Reports: Hx Kidney Stones - 2 wks ago, Hx Renal Insufficiency. Denies: Hx Peritoneal Dialysis Malignancy Medical History: Reports: Hx Breast Cancer GI Medical History: Reports: Hx Gastroesophageal Reflux Disease Musculoskeletal Medical History: Reports Hx Arthritis - Back, Reports Hx Mu sculoskeletal Trauma Traumatic Medical History: Reports: Hx Fractures - hx L ankle Past Surgical History: Reports: Hx Abdominal Surgery - lap band, Hx Cholecystectomy, Hx Orthopedic Surgery - back surgery, Hx Thyroid Surgery, Hx Vascular Surgery - miranda filter - Immunizations Immunizations up to date: Yes Hx Diphtheria, Pertussis, Tetanus Vaccination: Yes Hx Pneumococcal Vaccination: 06/22/00 Review of Systems - Review of Systems Notes: My Normal Review Basic REVIEW OF SYSTEMS: CONSTITUTIONAL : Denies fever, chills, or sweats. Denies recent illness. EENT: Denies eye, ear, throat, or mouth pain or symptoms. Denies nasal or sinus congestion. CARDIOVASCULAR: With coughing RESPIRATORY: Wheezing. Recurrent coughing. GASTROINTESTINAL: Denies abdominal pain. Denies nausea, vomiting, or diarrhea. MUSCULOSKELETAL: leg Pain SKIN: Denies rash or skin lesions. NEUROLOGICAL: Denies altered mental status or loss of consciousness. Denies headache. Denies weakness or paralysis or loss of use of either side. Denies problems with gait or speech. Denies sensory or motor loss. ALL OTHER SYSTEMS REVIEWED AND NEGATIVE. Physical Exam - Vital signs Vitals: Temp Pulse Resp BP Pulse Ox 98.5 F 91 17 150/91 H 98 08/11/18 22:16 08/11/18 22:16 08/11/18 22:16 08/11/18 22:16 08/11/18 22:16 - Notes Notes: General Appearance: Well nourished, alert, cooperative, no acute distress, no obvious discomfort. Vitals: reviewed, See vital signs table. Head: no swelling or tenderness to the head Eyes: PERRL, EOMI, Conjuctiva clear Mouth: No decreasd moisture Throat: No tonsillar inflammation, No airway obstruction, No lymphadenopathy Lungs: Scattered wheezing, No rales, No rhonci, No accessory muscle use, good air exchange bilaterally. Heart: Normal rate, Regular rythm, No murmur, no rub Abdomen: Normal BS, soft, No rigidity, No abdominal tenderness, No guarding, no rebound, no abdominal masses, no organomegaly Extremities: strength 5/5 in all extremities, good pulses in all extremities, patient does have what appears to be chronic swelling in both legs. Says the right leg is more painful than the left. She has good dorsalis pedis pulses bi laterally. Skin: warm, dry, appropriate color, no rash Neuro: speech clear, oriented x 3, normal affect, responds appropriately to questions. Course - Re-evaluation Re-evalutation: 08/12/18 05:16 Patient's breathing is improved however she is having some cramping in her leg. I again did offer to have ultrasound performed this morning. This is a rather go home and come back and do the prescription. She is requesting some for the pain in her leg as she is having cramping. She says she sometimes does get this and she takes hydrocodone at home. We will give her a dose of IM Dilaudid so that it faster acting and hopefully will get her pain under control. 08/12/18 05:51 On reevaluation patient's lung cherry are clear. Her leg pain is much improved. She wants to be discharged home at this time. Informed her that she should probably hold off and have endoscopy done being that she has had recurrent bronchitis and therefore sedation for good at this time. Patient agreeable to this and says she will reschedule. I have written a prescription for the outpatient venous Doppler she requests. I encouraged her to call the number to arrange appointment to have this done. I encouraged her return to ER if she has difficulty breathing, fevers, wheezing not responding to inhaler, or if she feels that she is worsening in any way. Dictation of this chart was performed using voice recognition software; therefore, there may be some unintended grammatical errors. - Vital Signs Vital signs: Temp Pulse Resp BP Pulse Ox 98.5 F 91 16 132/77 H 99 08/11/18 22:16 08/11/18 22:16 08/12/18 05:01 08/12/18 05:01 08/12/18 05:01 - Laboratory Result Diagrams: 08/12/18 02:09 08/12/18 02:09 Laboratory results interpreted by me: 08/12/18 08/12/18 08/12/18 02:09 02:09 02:09 WBC 11.3 H RBC 5.38 H RDW 16.5 H Seg Neutrophils % 79.7 H Absolute Neutrophils 9.0 H PT 19.2 H Sodium 136.6 L Potassium 5.4 H BUN 25 H Glucose 232 H - EKG Interpretation by Me Additional EKG results interpreted by me: 08/12/18 04:02 EKG is reviewed and interpreted by me. EKG shows sinus tachycardia with rate of [address] segment elevation or depression. No ischemic T wave inversions. MT interval, QRS duration, QT intervals are within normal range. Old EKG available for comparison is from April 06, 2017. Discharge - Discharge Clinical Impression: Acute bronchitis Qualifiers: Bronchitis organism: unspecified organism Qualified Code(s): J20.9 - Acute bronchitis, unspecified Leg pain Qualifiers: Laterality: right Qualified Code(s): M79.604 - Pain in right leg Condition: Good Disposition: HOME, SELF-CARE Additional Instructions: Please take the azithromycin as prescribed for your bronchitis. Please continue the steroids prescribed by Dr. Campbell. Use your nebulizer treatments at home. Please call the number on the prescription to arrange for ultrasound of your right leg. Return to ER immediately if you have difficulty breathing, fevers, worsening pain, or have any further concerns. Prescriptions: Azithromycin [Zithromax] 250 mg PO DAILY #4 tablet Forms: Follow-Up Outpatient Testing Referrals: DEBRA CAMPBELL MD [Primary Care Provider] - 08/13/18
[2018-08-12] MEDS ORDERED: ALBUTEROL SULFATE 0.083% NEB 2.5 MG/3 ML AMPUL NEB ONE (04:07)
[2018-08-12] MEDS ORDERED: AZITHROMYCIN 250 MG TABLET PO ONE (04:07)
[2018-08-12] MEDS ORDERED: HYDROMORPHONE HCL INJ/PF 2 MG/ML AMPULE IM ONE (05:14)
[2018-08-12 06:12] VITALS: BP 149/59
--- NOTE | 2018-08-12 07:42 | EKG REPORT ---
SEVERITY:- ABNORMAL ECG - SINUS TACHYCARDIA LEFT ANTERIOR FASCICULAR BLOCK LEFT VENTRICULAR HYPERTROPHY CONSIDER ANTERIOR INFARCT : Confirmed by: Jasbir Bianchi MD 12-Aug-2018 07:41:28
== END 2018-08-12 06:13 | disposition home or self-care (01) ==
LOC: ER 21:38
DX: J20.9 Acute bronchitis, unspecified (principal); R25.2 Cramp and spasm; M79.604 Pain in right leg; J45.909 Unspecified asthma, uncomplicated; R00.0 Tachycardia, unspecified; R05 Cough; I26.99 Other pulmonary embolism without acute cor pulmonale; Z79.01 Long term (current) use of anticoagulants; R07.9 Chest pain, unspecified; I25.10 Atherosclerotic heart disease of native coronary artery without angina pectoris; I10 Essential (primary) hypertension; E11.51 Type 2 diabetes mellitus with diabetic peripheral angiopathy without gangrene; Z85.3 Personal history of malignant neoplasm of breast
CPT/HCPCS: 93005; 94640 ×2; 99284; 96372; 36415; 82553; 82550; 85025; 85610; 85730; 80053; 84484; 71045; 93010; A9270 ×3; J1170; J7620

== ENCOUNTER → 2018-08-16 | Outpatient (CLI) | payer MEDICARE, BC ==
--- NOTE | 2018-08-16 17:44 | XCELERA REPORT ---
[address] [facility] [address] Lower Extremity Venous Evaluation Procedure: Color flow and duplex imaging bilaterally of the veins of the lower extremities as well as the Common Femoral veins. Right Sided Venous Evaluation Normal vessel filling wall to wall, compression and augmentation as well as Colour flow down to the infrageniculate veins. Left Sided Venous Evaluation Normal vessel filling wall to wall, compression and augmentation as well as Colour flow down to the infrageniculate veins. Interpretation Summary No duplex evidence of DVT or obstruction in the bilateral lower extremities. Name: BELEM WILLOUGHBY Age: 62 yrs Gender: Female : 1955 Patient Status: Outpatient Patient Location: Study Date: 08/16/2018 02:12 PM Reason For Study: PAIN IN LEGS Ordering Physician: KRYSTIAN CARRILLO Performed By: Suzy Dumont : KRYSTIAN CARRILLO > Michael Sanchez
== END ==
LOC: SP 13:52
PROVIDERS: ATTEND Internal Medicine Medical Oncology
DX: M79.605 Pain in left leg (principal); M79.604 Pain in right leg
CPT/HCPCS: 93970

== ENCOUNTER → 2018-08-29 | Outpatient (CLI) | payer MEDICARE, BC ==
--- NOTE | 2018-08-30 10:16 | RADIOLOGY REPORT (SQ) ---
EXAM DESCRIPTION: PET CT SKULL/THIGH COMPLETED DATE/TIME: 08/29/2018 9:52 pm REASON FOR STUDY: BREAST CANCER C50.919 MALIGNANT NEOPLASM OF UNSP SITE OF UNSPECIFIED FEMAL COMPARISON: 08/23/2017 and 10/31/2016. RADIONUCLIDE AND DOSE: 10 mCi F18 FDG The route of agent administration: Intravenous FASTING BLOOD SUGAR: 134 mg/dl CONTRAST TYPE AND DOSE: No CT contrast given. TECHNIQUE: Blood glucose level was verified. Above dose of FDG was injected intravenously. 2-D seg mented attenuation correction images were obtained from the base of the skull to the midthighs. Nonc ontrast CT images were obtained for attenuation correction and fusion with emission images. CT image s were performed without oral or intravenous contrast and are not sensitive for parenchymal lesions. A series of overlapping emission PET images were obtained. Images reviewed and manipulated at [facility] work station by the radiologist. Images stored on PACS. LIMITATIONS: None. FINDINGS: HEAD AND NECK: No areas of abnormal metabolic activity in the soft tissues of the head and neck. CHEST: No areas of abnormal metabolic activity in the chest. ABDOMEN AND PELVIS: No areas of abnormal metabolic activity in the abdomen or pelvis. Expected physi ologic activity is present in the genitourinary system and bowel. PROXIMAL LOWER EXTREMITIES: No areas of abnormal metabolic activity in the soft tissues of the lower extremities. BONES: No abnormal metabolic activity in the visualized skeleton. ADDITIONAL CT FINDINGS: Surgical changes in the left breast. Gastric banding hardware. Prior cholec ystectomy. Inferior vena cava filter. No additional significant findings on the noncontrast CT imag es. OTHER: Background blood pool activity mean SUV 2.14. Background liver activity mean SUV 3.12. No ot her significant findings. IMPRESSION: UNREMARKABLE PET-CT. NO EVIDENCE OF METASTATIC INVOLVEMENT. STABLE INCIDENTAL CT FINDI NGS RELATED TO PRIOR SURGERIES. TECHNICAL DOCUMENTATION: JOB ID: [id number] [employer]- All Rights Reserved Reading location - IP/workstation name: [email or web address]
--- NOTE | 2018-09-01 12:23 | RADIOLOGY REPORT (SQ) ---
EXAM DESCRIPTION: NM WHOLE BODY BONE SCAN COMPLETED DATE/TIME: 09/01/2018 12:10 pm REASON FOR STUDY: MALIG NEOPLASM OF UPPER-OUTER QUADRANT OF LEFT FEMALE BREAST C50.919 MALIGNANT NE OPLASM OF UNSP SITE OF UNSPECIFIED FEMAL COMPARISON: PET-CT 08/29/2018 RADIONUCLIDE AND DOSE: 20 millicuries Tc99m HDP. The route of agent administration: Intravenous. ADDITIONAL DRUGS AND DOSES: None. TECHNIQUE: Routine delayed images at 3 hours post radionuclide injection acquired of the bony skelet on including anterior and posterior whole-body projections and additional focused images as needed. LIMITATIONS: None. FINDINGS: BONES: Normal visualization without areas of photopenia or increased bony uptake of radiop harmaceutical. KIDNEYS: Symmetric excretion without obstruction. OTHER: No other significant finding. IMPRESSION: There is no evidence of osseous metastases. There is no evidence of occult hip fracture . COMMENT: Quality measure 147: Current bone scan is compared with any available plain radiographs, p rior bone scans, and CT/MRI. TECHNICAL DOCUMENTATION: JOB ID: [id number] [employer]- All Rights Reserved Reading location - IP/workstation name: [email or web address]
== END ==
LOC: RAD 16:57
PROVIDERS: ATTEND Internal Medicine Medical Oncology
DX: C50.412 Malignant neoplasm of upper-outer quadrant of left female breast (principal)
CPT/HCPCS: 78815; A9552

== ENCOUNTER → 2018-09-01 | Outpatient (CLI) | payer MEDICARE, BC | LOC: RAD 08:18 | PROVIDERS: ATTEND Internal Medicine Medical Oncology | DX: C50.412 Malignant neoplasm of upper-outer quadrant of left female breast (principal) ==

== ENCOUNTER → 2018-10-14 | Outpatient (CLI) | payer MEDICARE, BC ==
--- NOTE | 2018-10-14 10:23 | WOMENS IMAGING REPORT ---
EXAM DESCRIPTION: 3D DX MAMMO BILAT COMPLETED DATE/TIME: 10/14/2018 9:56 am REASON FOR STUDY: Z85.3 PERSONAL HISTORY OF MALIGNANT NEOPLASM OF BREAST Z85.3 PERSONAL HISTORY OF MALIGNANT NEOPLASM OF BREAST COMPARISON: Multiple since 2008 TECHNIQUE: Standard craniocaudal and mediolateral oblique views of each breast recorded using digita l acquisition and breast tomosynthesis. Additional left breast 90 mediolateral view and compression magnification views of the lumpectomy si te upper outer quadrant LIMITATIONS: None. FINDINGS: RIGHT BREAST MASSES: No suspicious masses. CALCIFICATIONS: No new or suspicious calcifications. ARCHITECTURAL DISTORTION: None. DEVELOPING DENSITY: None. ASYMMETRY: None noted. OTHER: Old biopsy clip right retroareolar region LEFT BREAST MASSES: No suspicious masses. CALCIFICATIONS: No new or suspicious calcifications. ARCHITECTURAL DISTORTION: None. DEVELOPING DENSITY: None. ASYMMETRY: Old lumpectomy site upper outer quadrant left breast with multiple surgical clips. Parenc hymal volume loss left breast upper outer quadrant OTHER: Diffuse left breast skin thickening and thickened Sourav's ligaments post radiation therapy Read with the assistance of CAD: .[facility] - R2 Program Architect Version 9.2 IMPRESSION: No mammographic evidence for malignancy bilaterally. Post therapeutic changes left breast upper outer quadrant, stable. BREAST DENSITY: b. There are scattered areas of fibroglandular density. BIRAD: 2 Benign findings. RECOMMENDATION: RECOMMENDED FOLLOW UP: Please continue right breast screening, left breast diagnosti c mammograms in September 2019 SPECIFIC INTERVENTION/IMAGING/CONSULTATION RECOMMENDED:No additional intervention/ imaging/consultati on needed at this time. COMMUNICATION:The negative/benign results were communicated to the patient. COMMENT: The patient has been notified of the results by letter per MQSA requirements. Additional no tification policies are in place for contacting patient with suspicious or incomplete findings. Quality ID #225: The [employer] recommends an annual screening mammogram for women aged 40 years or over. This facility utilizes a reminder system to ensure that all patients receive reminder letters, and/or direct phone calls for appointments. This includes reminders for routine scr eening mammograms, diagnostic mammograms, or other Breast Imaging Interventions when appropriate. Th is patient will be placed in the appropriate reminder system. DBT Technology DBT is a type of tomographic mammography. With conventional mammography, overlapping breast tissue ma y make lesions difficult to detect, even with good compression. DBT uses an x-ray tube that rotates a round the breast, taking images at different angles. These images are then combined to create thin sl ices of the breast that the radiologist can view as a 3D reconstruction. The Hologic unit can perform full-field digital mammograms (2D imaging); or DBT (3D imaging); or both, in a combination mode that quickly performs both the mammogram and the tomosynthesis scan while the breast is still compressed. TECHNICAL DOCUMENTATION: FINDING NUMBER: (1) ASSESSMENT: (1) JOB ID: [id number] [employer]- All Rights Reserved Reading location - IP/workstation name: COMMUNICATION SPECIALIST-[email or web address]-
== END ==
LOC: WI 09:28
PROVIDERS: ATTEND Internal Medicine
DX: Z85.3 Personal history of malignant neoplasm of breast (principal)
CPT/HCPCS: 77066; G0279; 77062

== ENCOUNTER → 2018-10-29 | Outpatient (CLI) | payer MEDICARE, BC ==
[2018-10-29 12:37] LABS: ABSOLUTE EOSINOPHILS # (AUTO) 0.1 10^3/uL (0.0-0.6); ABSOLUTE LYMPHOCYTES (AUTO) 1.2 10^3/uL (0.5-4.7); ABSOLUTE MONOCYTES (AUTO) 0.4 10^3/uL (0.1-1.4); ABSOLUTE NEUT (AUTO) 3.8 10^3/uL (1.7-8.2); BASOPHILS % (AUTO) 0.4 % (0-2); EOSINOPHILS % (AUTO) 2.2 % (0-6); HEMATOCRIT 38.5 % (36.0-47.0); HEMOGLOBIN 12.6 g/dL (12.0-15.5); LYMPHOCYTES % (AUTO) 21.4 % (13-45); MEAN CORPUSCULAR HEMOGLOBIN 28.8 pg (27.0-33.4); MEAN CORPUSCULAR HGB CONC 32.8 g/dL (32.0-36.0); MEAN CORPUSCULAR VOLUME 88 fl (80-97); MONOCYTES % (AUTO) 6.5 % (3-13); PLATELET COUNT 231 10^3/uL (150-450); RED BLOOD COUNT 4.38 10^6/uL (3.72-5.28); RED CELL DISTRIBUTION WIDTH 15.1 % (11.5-14.0); SEGMENTED NEUTROPHILS % (AUTO) 69.5 % (42-78); TOTAL CELLS COUNTED % (AUTO) 100 %; WHITE BLOOD COUNT 5.5 10^3/uL (4.0-10.5)
[2018-10-29 12:48] LABS: ALANINE AMINOTRANSFERASE 22 U/L (9-52); ALBUMIN 3.5 g/dL (3.5-5.0); ALKALINE PHOSPHATASE 95 U/L (38-126); ANION GAP 9 (5-19); ASPARTATE AMINO TRANSFERASE 13 U/L (14-36); BILIRUBIN,DIRECT 0.2 mg/dL (0.0-0.4); BILIRUBIN,TOTAL 0.3 mg/dL (0.2-1.3); BLOOD UREA NITROGEN 16 mg/dL (7-20); CALCIUM 9.3 mg/dL (8.4-10.2); CARBON DIOXIDE 27 mmol/L (22-30); CHLORIDE 104 mmol/L (98-107); GLUCOSE 182 mg/dL (75-110); POTASSIUM 4.1 mmol/L (3.6-5.0); TOTAL PROTEIN 6.2 g/dL (6.3-8.2)
--- NOTE | 2018-10-29 12:48 | RADIOLOGY REPORT (SQ) ---
EXAM DESCRIPTION: CHEST SINGLE VIEW COMPLETED DATE/TIME: 10/29/2018 12:02 pm REASON FOR STUDY: MORBID (SEVERE) OBESITY DUE TO EXCESS CALORIES COMPARISON: 08/11/2018. EXAM PARAMETERS: NUMBER OF VIEWS: One view. TECHNIQUE: Single frontal radiographic view of the chest acquired. RADIATION DOSE: NA LIMITATIONS: None. FINDINGS: LUNGS AND PLEURA: Stable minimal scarring in the left lung. No opacities, masses or pneum othorax. No pleural effusion. MEDIASTINUM AND HILAR STRUCTURES: No masses. Contour normal. HEART AND VASCULAR STRUCTURES: Heart normal in size. Normal vasculature. BONES: No acute findings. HARDWARE: Right PICC line unchanged finding. OTHER: No other significant finding. IMPRESSION: 1. No significant interval changes since the prior examination dated 08/11/2018. No acu te findings. TECHNICAL DOCUMENTATION: JOB ID: [id number] [employer]- All Rights Reserved Reading location - IP/workstation name: [email or web address]
--- NOTE | 2018-10-29 22:40 | EKG REPORT ---
SEVERITY:- ABNORMAL ECG - SINUS RHYTHM LEFT AXIS DEVIATION LEFT VENTRICULAR HYPERTROPHY ANTERIOR Q WAVES, POSSIBLY DUE TO LVH : Confirmed by: Gunjan Hopper MD 29-Oct-2018 22:39:48
== END ==
LOC: OD 11:16
PROVIDERS: ATTEND Surgery
DX: E66.01 Morbid (severe) obesity due to excess calories (principal)
CPT/HCPCS: 36415; 71045; 80053; 84443; 85025; 93005; 93010

== ENCOUNTER → 2019-03-01 | Outpatient (CLI) | payer MEDICARE, BC ==
--- NOTE | 2019-03-01 16:08 | RADIOLOGY REPORT (SQ) ---
EXAM DESCRIPTION: CT ABD/PELVIS NO ORAL OR IV COMPLETED DATE/TIME: 03/01/2019 3:56 pm REASON FOR STUDY: N20.2 CALCULUS OF KIDNEY WITH CALCULUS OF URETER N20.2 CALCULUS OF KIDNEY WITH CA LCULUS OF URETER COMPARISON: 11/29/2014 TECHNIQUE: CT scan of the abdomen and pelvis performed without intravenous or oral contrast. Images reviewed with lung, soft tissue, and bone windows. Reconstructed coronal and sagittal MPR images revi ewed. All images stored on PACS. All CT scanners at this facility use dose modulation, iterative reconstruction, and/or weight based d osing when appropriate to reduce radiation dose to as low as reasonably achievable (ALARA). [facility]: Dose Right [facility]: CareDose [facility]: Dose Right [facility]: Teradose 4D [facility]: SingWho RADIATION DOSE: CT Rad equipment meets quality standard of care and radiation dose reduction techniq ues were employed. CTDIvol: 23.3 mGy. DLP: 1269 mGy-cm.mGy. LIMITATIONS: None. FINDINGS: LOWER CHEST: No significant findings. No nodules or infiltrates. NON-CONTRASTED LIVER, SPLEEN, ADRENALS: Evaluation limited by lack of IV contrast. No identified sign ificant masses. PANCREAS: No masses. No peripancreatic inflammatory changes. GALLBLADDER: Surgically absent. RIGHT KIDNEY AND URETER: No suspicious masses. Assessment limited by lack of IV contrast. No signif icant calcifications. No hydronephrosis or hydroureter. LEFT KIDNEY AND URETER: No suspicious masses. Assessment limited by lack of IV contrast. No signifi cant calcifications. No hydronephrosis or hydroureter. AORTA AND RETROPERITONEUM: No aneurysm. No retroperitoneal masses or adenopathy. IVC filter is in pl magalie. BOWEL AND PERITONEAL CAVITY: No obvious masses or inflammatory changes. No free fluid. APPENDIX: Normal. PELVIS, BLADDER, AND ABDOMINAL WALL:No abnormal masses. No free fluid. Bladder normal. BONES: No significant findings. OTHER: No other significant finding. IMPRESSION: NO SIGNIFICANT OR ACUTE PROCESS IN THE ABDOMEN OR PELVIS. COMMENT: Quality ID # [id number]: Final reports with documentation of one or more dose reduction techniques (e.g., Automated exposure control, adjustment of the mA and/or kV according to patient size, use of iterative reconstruction technique) TECHNICAL DOCUMENTATION: JOB ID: [id number] [employer]682[employer]- All Rights Reserved Reading location - IP/workstation name: [email or web address]
== END ==
LOC: RAD 16:02
PROVIDERS: ATTEND Internal Medicine
DX: N20.2 Calculus of kidney with calculus of ureter (principal)
CPT/HCPCS: 74176

== ENCOUNTER 2019-04-12 09:50 | Emergency (ER) | payer MEDICARE, BC ==
[2019-04-12] MEDS ORDERED: HYDROMORPHONE HCL INJ/PF 2 MG/ML AMPULE IM ONE (10:41)
--- NOTE | 2019-04-12 10:46 | ER Document Report ---
ED General - General Chief Complaint: Back Pain Stated Complaint: FALL/BACK PAIN Time Seen by Provider: 04/12/19 10:25 Primary Care Provider: DEBRA CAMPBELL MD [Primary Care Provider] - Follow up as needed TRAVEL OUTSIDE OF THE [place] IN LAST 30 DAYS: No - HPI Notes: Patient is a 63-year-old female that presents to the emergency department for chief complaint of left flank pain. Patient reports pain in her left back radiating around her left side for the last 6 months. She states it is constant and worse with movement. She takes Percocet 10/325 at home as prescribed by pain management and states that is no longer giving her relief. She states that the pain today is worse. She denies new pain. She states yesterday she had a sharp pinch in that side which caused her to trip on the steps. She fell up one step hitting her right knee on the step above. She states she has some mild pain in the right knee as well today. She has been able to ambulate without significant discomfort on the right knee. She denies fever, nausea/vomiting, numbness, weakness and urinary complaints. Patient did have a MRI 2 weeks ago prescribed by her PCP and was told that something was "torn", she has a follow-up appointment with orthopedic surgery in 2 weeks. Past Medical History: Chronic back pain Past Surgical History: Reviewed in chart Social History: Denies drugs alcohol and tobacco. Lives at home Family History: Reviewed and noncontributory for presenting illness Allergies: Reviewed, see documented allergy list. REVIEW OF SYSTEMS: CONSTITUTIONAL : No fever No chills No diaphoresis No recent illness EENT: No vision changes No congestion No sore throat CARDIOVASCULAR: No chest pain No palpitations RESPIRATORY: No shortness of breath No cough No difficulty breathing GASTROINTESTINAL: No abdominal pain No nausea No vomiting No diarrhea GENITOURINARY: No dysuria No hematuria No difficulty urinating MUSCULOSKELETAL: back pain leg pain No arm pain SKIN: No rashes No lesions LYMPHATIC: No swollen, enlarged glands. NEUROLOGICAL: No lightheadedness No headache No weakness No paresthesias PSYCHIATRIC: No anxiety No depression PHYSICAL EXAMINATION: Vital signs reviewed, nursing noted reviewed. GENERAL: Well-appearing, obese and in no acute distress. HEAD: Atraumatic, normocephalic. EYES: Eyes appear normal, extraocular movements intact, sclera anicteric, conjunctiva are normal. ENT: nares patent, oropharynx clear without exudates. Moist mucous membranes. NECK: Normal range of motion, supple without lymphadenopathy LUNGS: Breath sounds clear to auscultation bilaterally and equal. No wheezes rales or rhonchi. HEART: Regular rate and rhythm without murmurs ABDOMEN: Soft, nontender, normoactive bowel sounds. No rebound, guarding, or rigidity. No masses appreciated. EXTREMITIES: No bony tenderness to right knee. Arthritic changes in right knee without joint deformity. Normal range of motion in right knee. No right knee joint laxity. No pitting or edema. Back: Left SI joint and iliac crest tenderness. No midline thoracic or lumbar spinal tenderness. Normal range of motion of spine. NEUROLOGICAL: No focal neurological deficits. Moves all extremities spontaneously Motor and sensory grossly intact on exam. PSYCH: Normal mood, normal affect. SKIN: Warm, Dry, normal turgor, no rashes or lesions noted on exposed skin - Related Data Allergies/Adverse Reactions: iodine [Iodine] Allergy (Severe, Verified 04/12/19 10:01) swelling, itch, resp distress morphine Allergy (Verified 04/12/19 10:01) Past Medical History - Social History Smoking Status: Never Smoker Chew tobacco use (# tins/day): No Frequency of alcohol use: None Drug Abuse: None Family History: Reviewed & Not Pertinent, Arthritis, CAD, DM, Hyperlipidemia, Hypertension, Malignancy Patient has suicidal ideation: No Patient has homicidal ideation: No - Past Medical History Cardiac Medical History: Reports: Hx Atrial Fibrillation, Hx Congestive Heart Failure - 2006, Hx Coronary Artery Disease, Hx DVT, Hx Hypercholesterolemia, Hx Hypertension, Hx Peripheral Vascular Disease, Hx Pulmonary Embolism - 1996 or 997 Pulmonary Medical History: Reports: Hx Asthma Endocrine Medical History: Reports: Hx Diabetes Mellitus Type 1, Hx Diabetes Mellitus Type 2, Hx Hypothyroidism Renal/ Medical History: Reports: Hx Kidney Stones - 2 wks ago, Hx Renal Insufficiency. Denies: Hx Peritoneal Dialysis Malignancy Medical History: Reports: Hx Breast Cancer GI Medical History: Reports: Hx Gastroesophageal Reflux Disease Musculoskeletal Medical History: Reports Hx Arthritis - Back, Reports Hx Musculoskeletal Trauma, Denies Hx Systemic Lupus Erythematosus Traumatic Medical History: Reports: Hx Fractures - hx L ankle Past Surgical History: Reports: Hx Abdominal Surgery - lap band, Hx Breast Surgery - L lumpectomy, Hx Cholecystectomy, Hx Orthopedic Surgery - back surgery, Hx Thyroid Surgery, Hx Vascular Surgery - miranda filter - Immunizations Immunizations up to date: Yes Hx Diphtheria, Pertussis, Tetanus Vaccination: Yes Hx Pneumococcal Vaccination: 06/22/00 Physical Exam - Vital signs Vitals: Temp Pulse Resp BP Pulse Ox 97.8 F 77 18 152/86 H 99 04/12/19 09:55 04/12/19 09:55 04/12/19 09:55 04/12/19 09:55 04/12/19 09:55 Course - Re-evaluation Re-evalutation: 04/12/19 10:46 Vitals reviewed. Nursing notes reviewed. Patient is in pain management for her left-sided flank pain and has had outpatient CT scans and MRI. She is currently taking Percocet 10/325 mg tablets. Patient's pain today is consistent with her chronic pain but more severe in nature. She has no new neurologic symptoms and has no new trauma to her back to necessitate further imaging at this point. She does have a follow-up appointment with orthopedic surgery which she will keep. I do not have access to her MRI results. Patient was given IM Dilaudid for pain control. She will contact her pain management doctor today to discuss home medications since her pain has become more intense. Patient's right knee exam is not suggestive of acute fracture and her mechanism of injury was low. Her fracture of the right knee not clinically suspected. Patient is able to bear weight and ambulate without significant difficulty. She will follow with her PCP and orthopedic surgery for reevaluation. She will return for new or worsening symptoms. - Vital Signs Vital signs: Temp Pulse Resp BP Pulse Ox 97.8 F 77 18 152/86 H 99 04/12/19 09:55 04/12/19 09:55 04/12/19 09:55 04/12/19 09:55 04/12/19 09:55 Discharge - Discharge Clinical Impression: Left flank pain, chronic Condition: Stable Disposition: HOME, SELF-CARE Instructions: Low Back Pain ([facility]) Additional Instructions: Please return to the emergency department if you have any worsening, or concern of your symptoms. Please return to the emergency department if you develop chest pain, difficulty breathing, severe abdominal pain, or ongoing vomiting. Please follow-up with your primary care physician in 2-3 days and any other recommended physicians. If prescribed, take all medications as directed. If you have any questions or concerns do not hesitate to return the emergency department for evaluation. Keep your appointment with orthopedic surgery for follow-up Contact your pain management doctor today to discuss your home pain medications Referrals: DEBRA CAMPBELL MD [Primary Care Provider] - Follow up in 3-5 days
[2019-04-12 11:35] VITALS: BP 146/72
== END 2019-04-12 11:34 | disposition home or self-care (01) ==
LOC: ER 09:50
DX: S80.01XA Contusion of right knee, initial encounter (principal); R10.9 Unspecified abdominal pain; G89.29 Other chronic pain; M54.9 Dorsalgia, unspecified; M25.561 Pain in right knee; W19.XXXA Unspecified fall, initial encounter; I50.9 Heart failure, unspecified; I25.10 Atherosclerotic heart disease of native coronary artery without angina pectoris; I11.0 Hypertensive heart disease with heart failure
CPT/HCPCS: 99284; 96374; J1170

== ENCOUNTER → 2020-03-21 | Outpatient (CLI) | payer MEDICARE, BC ==
--- NOTE | 2020-03-21 12:59 | RADIOLOGY REPORT (SQ) ---
EXAM DESCRIPTION: NM WHOLE BODY BONE SCAN IMAGES COMPLETED DATE/TIME: 03/21/2020 12:21 pm REASON FOR STUDY: C50.412 MALIG NEOPLASM OF UPPER-OUTER QUADRANT OF LEFT FEMALE BREAST C50.412 LEANA G NEOPLASM OF UPPER-OUTER QUADRANT OF LEFT FEMAL M25.559 PAIN IN UNSPECIFIED HIP COMPARISON: Bone scan 09/01/2018 ; PET-CT 08/29/2018 ; various other imaging studies. RADIONUCLIDE AND DOSE: 20 millicuries Tc99m MDP. The route of agent administration: Intravenous. ADDITIONAL DRUGS AND DOSES: None. TECHNIQUE: Routine delayed images at 3 hours post radionuclide injection acquired of the bony skelet on including anterior and posterior whole-body projections and additional focused images as needed. LIMITATIONS: None. FINDINGS: BONES: There are areas of increased uptake in the AC joints, right wrist, and in the spine that are felt to be degenerative in nature. The overall appearance of the scan does not suggest met astatic disease to bone. KIDNEYS: Symmetric excretion without obstruction. OTHER: No other significant finding. IMPRESSION: There are areas of presumed degenerative uptake. The overall appearance of the scan leonard s not suggest metastatic disease to bone. COMMENT: Quality measure 147: Current bone scan is compared with any available plain radiographs, p rior bone scans, and CT/MRI. TECHNICAL DOCUMENTATION: JOB ID: [id number] [employer]- All Rights Reserved Reading location - IP/workstation name: [email or web address]
== END ==
LOC: RAD 08:01
PROVIDERS: ATTEND Internal Medicine Hematology & Oncology
DX: C50.412 Malignant neoplasm of upper-outer quadrant of left female breast (principal); M25.559 Pain in unspecified hip
CPT/HCPCS: 78306; A9503; Q9969